=== PATIENT | male | born 1965 | race Caucasian/White ===

== ENCOUNTER 2019-05-18 14:49 | Inpatient (IN) ==
[2019-05-18] MEDS ORDERED: HUMULIN R IV ONE (15:13)
[2019-05-18] MEDS ORDERED: NS 1,000 ML IV ONE ×2 (15:13→17:03)
[2019-05-18] MEDS ORDERED: ZOFRAN IV ONE (15:13)
[2019-05-18] MEDS ORDERED: MORPHINE IV ONE (15:13)
[2019-05-18 15:25] LABS: HEMATOCRIT 43.7 % (42.0-52.0); HEMOGLOBIN 14.3 g/dL (14.0-18.0); MCH 28.8 PG (27-31); MCHC 32.7 g/dL (33-37); MCV 88.1 FL (81-99); MPV 10.6 FL (7.4-10.4); RBC 4.96 XMIL (4.7-6.1); RDW 12.9 % (11.5-14.5); WBC 10.15 X1000 (4.8-10.8)
[2019-05-18] MEDS ORDERED: HUMULIN R (PARKWAY) ONE (15:34)
[2019-05-18 15:49] LABS: ESTIMATED GFR 39
[2019-05-18 15:55] LABS: AGAP 28; ALBUMIN 4.6 g/dL (3.5-5.0); ALKALINE PHOSPHATASE 152 U/L (32-122); BUN 45 mg/dL (8-22); CHLORIDE 98 mmol/L (98-107); CK PROFILE 93 U/L (24-204); COSMO 315; CREATININE 1.8 mg/dL (0.7-1.2); GOT 21 U/L (10-34); GPT 24 U/L (10-44); MAGNESIUM 2.5 mg/dL (1.5-2.7); PHOSPHORUS 3.6 mg/dL (2.7-4.5); POTASSIUM 4.6 mmol/L (3.5-5.1); SODIUM 142 mmol/L (136-145); TCO2 16 mmol/L (25-35)
[2019-05-18 15:56] LABS: BE -4.4 mmoll (-3.0-3.0); BLOOD TYPE ARTERIAL; HCO3-(ACT) 21.3 mmoll (20.0-26.0); METHB 0.8 % (0.0-1.5); O2(CT) 16.9 mL/dL (15.0-23.0); PCO2(98.6) 35 mmHg (35-45); PO2(98.6) 60 mmHg (60-100); SAMPLE BLOOD; SAO2 92.5 % (95.0-100.0); THB 13.4 g/dL (11.5-17.4); pH(98.6) 7.37 (7.35-7.45)
[2019-05-18 15:58] LABS: O2HB 89.8 % (95.0-99.0)
[2019-05-18 15:59] LABS: ALLEN TEST YES; MODALITY ROOM AIR
[2019-05-18 16:01] LABS: ACETONE SERUM SMALL (NEGATIVE)
[2019-05-18 16:03] LABS: GLUCOSE 471 mg/dL (70-104)
[2019-05-18 16:19] LABS: INFLUENZA A POSITIVE (NEGATIVE); INFLUENZA B NEGATIVE (NEGATIVE)
[2019-05-18 16:22] LABS: URINE SOURCE CLEAN CATCH
--- NOTE | 2019-05-18 16:23 | Diag Imaging Result Doc PS360 ---
EXAM: CHEST-PORTABLE - 05/18/2019 HISTORY: cough, flu TECHNIQUE: Portable chest COMPARISON: 03/16/2020 chest two views FINDINGS: Heart size is normal. There are possibly mild COPD changes. There are stable nodular opacity at the right base. There is no acute consolidation, pleural effusion, or pneumothorax identified. IMPRESSION: Possible mild COPD changes. Nodular opacity at right base. CT thorax is recommended for further evaluation. No evidence of pneumonia. Electronically signed by Mohan Jones 05/18/2019 4:21 PM
[2019-05-18 16:28] LABS: UR EPITHELIAL CELLS <10 /HPF (<10); URINE BACTERIA NEGATIVE /HPF; URINE RBC <10 /HPF (<10); URINE WBC <10 /HPF (<10)
[2019-05-18] MEDS ORDERED: TAMIFLU PO ONE (16:29)
--- NOTE | 2019-05-18 16:29 | PROVIDER DOCUMENTATION ---
This chart was entered by Lorraine Franco Scribe, acting as scribe for Vivek Agudelo MD. HPI-General Adult - General Chief Complaint: DKA ALERT Stated Complaint: VOMITTING / DIABETIC Time Seen by Provider: 05/18/19 15:08 Source: patient, other (neighbor) Allergies/Adverse Reactions: Patient Allergies Allergy/AdvReac Type Severity Reaction Status Date / Time Penicillins Allergy Unknown Verified 05/16/19 20:36 Home Medications: Home Medication List Medication Instructions Recorded Confirmed Last Taken Type Insulin Glargine [Lantus] 35 unit SUBQ QHS 04/12/15 09/22/15 04/11/15 History Insulin Regular, Human [Humulin R] 15 unit SQ DIRECTED 04/12/15 09/22/15 04/12/15 12:00 History Pregabalin [Lyrica] 75 mg PO TID 04/12/15 09/22/15 Unknown History ATORVAstatin [Lipitor] 10 mg PO DAILY #30 tablet 09/22/15 Unknown Rx Insulin Glargine [Lantus] 35 unit SUBQ QHS #30 insuln.pen 09/22/15 Unknown Rx Pen Needle, Diabetic [Insulin Pen 1 each MC PRN PRN #100 dis.needle 09/22/15 Unknown Rx Needle] Cyclobenzaprine [Flexeril] 10 mg PO BID #10 tablet 10/19/17 Unknown Rx Ketorolac [Toradol] 10 mg PO Q6H PRN PRN #20 tablet 10/19/17 Unknown Rx Benzonatate [Tessalon Perle] 100 mg PO TID #15 cap 05/16/19 Unknown Rx Oseltamivir [Tamiflu] 75 mg PO BID #10 cap 05/16/19 Unknown Rx - History of Present Illness -Gen Adult Nature of Presenting Problems: 53 yowm presents to the ed with c/o generalized bodyaches, fatigue, cough, rhinorrhea, n/v and elevated BGL. pt has FSBS 452 in triage and sts sx all began this am. was seen last night in ed and dx with Flu. pt is poor historian on doses of insulin but sts "I take it everyday" Location of Pain/Injury: reports: generalized Quality of Pain: reports: aching Severity: reports: moderate Onset/Duration: reports: this morning Timing: reports: still present, getting worse Context/Activities at Onset: reports: light activity Modifying Factors: improves with: nothing Associated Symptoms: reports: cough, EENT symptoms, fatigue, malaise, muscle aches, nausea, vomiting. denies: chest pain, diarrhea, fever/chills, headaches, shortness of breath Similar Symptoms Previously?: Yes (IDDM) Recently seen or treated by another doctor?: No - Diabetes Related Context Context: reports: high blood sugar, prior DKA hospitalization Review of Systems - Adult - REVIEW OF SYSTEMS - ADULT Constitutional: reports: see HPI, fatique. denies: fever Eyes: reports: no symptoms reported Ears, Nose, Mouth & Throat: reports: see HPI, other (rhinorrhea) Cardiovascular: denies: chest pain, palpitations Respiratory: reports: see HPI, cough. denies: shortness of breath, wheezing Gastrointestinal: reports: see HPI, nausea, vomiting. denies: diarrhea Genitourinary: reports: no symptoms reported Musculoskeletal: reports: see HPI, muscle aches Integumentary: reports: no symptoms reported Neurological: denies: dizziness/vertigo, headache/migraines Psychiatric: reports: no symptoms reported Endocrine: reports: no symptoms reported Hematologic/Lymphatic: reports: no symptoms reported Allergic/Immunologic: reports: no symptoms reported All Other Systems: Reviewed and Negative Past History - Adult - PAST MEDICAL HISTORY-ADULT Review of Records: reports: Old Records Reviewed, Nursing Assessment Review, Medications Reviewed, Social history reviewed & non-contributory. Major Childhood Illnesses: reports: denies history Cardiovascular: reports: HTN, hyperlipidemia Respiratory: reports: denies history Gastrointestinal: reports: denies history Genitourinary: reports: denies history Musculoskeletal: reports: denies history Neurological: reports: denies history Psychiatric: reports: denies history Endocrine/Immune: reports: Diabetes Diabetes Type: Type 2 Diabetes controlled by:: Insulin Dependent Other Conditions: reports: denies history - PRIOR SURGERIES/PROCEDURES Surgical/Procedure History: reports: reviewed, not pertinent - IMMUNIZATION STATUS Childhood Immunizations: See Nurse Assessment Flu Vaccine: See Nurse Assessment - FAMILY HISTORY Family History: reviewed, not pertinent - SOCIAL HISTORY Smoking: quit greater than 1 year Substance Use: marijuana Living Situation: family Physical Exam-General - PHYSICAL EXAM-ADULT Initial Vital Signs Reviewed: Yes - CONSTITUTIONAL General Appearance: alert, mild distress (pt looks to not feel well), thin. negative: appears well (ill appearing) - EYES Eyes: PERRL/EOMI, pink conjunctivae - HEAD, EARS, NOSE, MOUTH & THROAT HENMT: negative: moist mucous membranes (dry oral) - NECK Neck: non-tender, full range of motion, normal inspection - RESPIRATORY Respiratory: chest non-tender, lungs clear, normal breath sounds - CARDIOVASCULAR Cardiovascular: normal peripheral pulses, regular rate, rhythm - CHEST (BREASTS) Chest/Breast: deferred - GASTROINTESTINAL (ABDOMEN) Abdominal Exam: normal bowel sounds, non tender, soft, other (c/o nausea) - GENITOURINARY Male Genitalia: deferred Rectal Exam: deferred Hemoccult Exam: deferred - MUSCULOSKELETAL Back Exam: no CVA tenderness, no vertebral tenderness Extremity: normal range of motion, normal gait, normal inspection, normal capillary refill, other (c/o generalized bodyaches) - SKIN Integumentary: normal color, normal turgor, warm/dry - NEUROLOGIC Neurologic: grossly normal - PSYCHIATRIC Psych/Mental Status: normal thought content, normal thought process, oriented x 3 Progress - PLAN OF CARE/RESULTS Progress/Plan/Lab Results: Vital Signs - 8 hr 05/18/19 14:53 Temperature 97.8 F Pulse Rate 95 H Respiratory Rate 18 Blood Pressure 129/79 O2 Sat by Pulse Oximetry 97 Laboratory Results - last 24 hr 05/18/19 14:57 POC Glucose 452 H Orders Category Date Time Status Cardiac Monitoring DIRECTED Care 05/18/19 14:58 Active FSBS/Accucheck Result Q1H Care 05/18/19 14:58 Active Finger Stick Blood Sugar (ED) DIRECTED Care 05/18/19 14:59 Active Saline Loc NOW Care 05/18/19 14:58 Active Vital Signs Order Q1H Care 05/18/19 14:58 Active ABG [RESP] Routine Lab 05/18/19 14:58 Ordered ACETONE SERUM [CHEM] Stat Lab 05/18/19 15:12 Ordered CBC WITH NO DIFF [HEME] Stat Lab 05/18/19 15:12 Ordered CK PROFILE [SP CHEM] Stat Lab 05/18/19 15:12 Ordered COMPREHENSIVE METABOLIC PANEL [CHEM] Stat Lab 05/18/19 15:12 Ordered LACTATE, PLASMA [CHEM] Stat Lab 05/18/19 15:12 Ordered MAGNESIUM [CHEM] Stat Lab 05/18/19 15:12 Ordered PHOSPHORUS [CHEM] Stat Lab 05/18/19 15:12 Ordered TROPONIN T HIGH SENSITIVITY Stat Lab 05/18/19 15:12 Ordered URINALYSIS [URINALYSIS] Stat Lab 05/18/19 14:58 Uncollected URINE DRUG SCREEN PL Stat Lab 05/18/19 14:58 Uncollected Insulin Human Regular [Humulin R] Med 05/18/19 15:13 Once 5 unit IV NOW ONE Morphine Med 05/18/19 15:13 Once 4 mg IV NOW ONE Ns 1000 ml IV Bolus X1 Med 05/18/19 15:13 Ordered 0.9% Sodium Chloride Inj [Ns] 1,000 ml IV 999 mls/hr Ondansetron [Zofran] Med 05/18/19 15:13 Once 8 mg IV NOW ONE EKG [EKG] Routine Ther 05/18/19 14:58 Ordered Result Diagrams: 05/18/19 15:10 05/18/19 15:10 - REASSESSMENT Reassessment #1 Time Reassessed: 15:15 Status: improving (dr at bedside) - EKG 1 Time of EKG reading by physician:: 15:33 EKG Read and Signed by:: Vivek Agudelo EKG Interpretation (*Must complete 3 of following elements*): Normal (borderline) Rate: 87 Rhythm: nsr [place]: normal QRS: LVH MO Interval: normal ST Wave: normal - XRAY 1 XRAY: Bilateral XRAY Study: Chest Impression: See EMR Report - CONSULTS/PCP/HOSPITALIST Notification #1 *Consult/PCP/Hospitalist*: hospitalist dr montes Time Discussed: 16:04 Consult Disposition: Will see in ED, Admit Departure - Departure Date of Disposition Decision: 05/18/19 Time of Disposition Decision: 16:18 DIAGNOSIS: Flu, COPD (chronic obstructive pulmonary disease) DKA (diabetic ketoacidoses) Qualifiers: Diabetes mellitus type: type 2 Diabetes mellitus complication detail: without coma Qualified Code(s): E11.10 - Type 2 diabetes mellitus with ketoacidosis without coma Vomiting Qualifiers: Vomiting type: unspecified Vomiting Intractability: non-intractable Nausea presence: with nausea Qualified Code(s): R11.2 - Nausea with vomiting, unspecified Disposition: ADMITTED INPATIENT 09 Certified Medical Emergency: Emergent Condition: Stable Referrals and Follow-Ups: None,PCP [Primary Care Provider] - - Critical Care Note This patient required my direct & personal management of CC.: Yes Total Time (mins): 37 Critical Care Statement: This patient required my direct personal management to treat or rule out processes, the absence of which, could potentiallly result in sudden, clinically significant life or limb threatening deterioration. Attestation - Physician/ JOSE Attestation Patient care was provided by Advanced Practice Provider:: No The physician spent face to face time with patient:: Yes Advanced Practice Provider documentation review:: Supervising physician onsite and consulted in the evaluation and care of this patient. The physician did have a face to face encounter with the patient. This chart was documented by the indicated scribe, (Lorraine Franco Scribe) and accurately reflects the services I performed and decisions made by me, Vivek Agudelo MD, as attested by the provider's signature.
[2019-05-18 16:33] LABS: BILIRUBIN URINE NEGATIVE (NEGATIVE); BLOOD URINE TRACE (NEGATIVE); COLOR YELLOW; GLUCOSE URINE >1000 mg/dL (NEGATIVE); KETONE URINE 80 mg/dL (NEGATIVE); LEUKOCYTES URINE NEGATIVE (NEGATIVE); NITRITE URINE NEGATIVE (NEGATIVE); PROTEIN URINE 30 mg/dL (NEGATIVE); SP GRAVITY URINE 1.027; TURBIDITY URINE CLEAR (CLEAR); UROBILINOGEN URINE NORMAL (NORMAL)
[2019-05-18 16:35] LABS: UR AMPHETAMINES QUAL NONE DETECTED (NONE DETECT); UR BARBITUATES QUAL NONE DETECTED (NONE DETECT); UR BENZODIAZEPIN QUAL NONE DETECTED (NONE DETECT); UR CANNABINOIDS QUAL NONE DETECTED (NONE DETECT); UR COCAINE QUAL NONE DETECTED (NONE DETECT); UR METHADONE QUAL NONE DETECTED (NONE DETECT); UR METHAMPHETAMINE QUAL NONE DETECTED (NONE DETECT); UR OPIATES QUAL PRESUMPTIVE POSITIVE (NONE DETECT); UR OXYCODONE QUAL NONE DETECTED (NONE DETECT); UR PCP QUAL NONE DETECTED (NONE DETECT); UR PROPOXYPHENE QUAL NONE DETECTED (NONE DETECT); UR TCA QUAL NONE DETECTED (NONE DETECT)
[2019-05-18] MEDS ORDERED: ZOFRAN IV PRN (17:44)
[2019-05-18] MEDS ORDERED: TYLENOL PO PRN (17:44)
[2019-05-18] MEDS: NS 1,000 ML IV SCH (17:45)
--- NOTE | 2019-05-18 17:53 | EKG Report ---
Test Performed on : 05/18/2019 3:33:07 PM Test Reason : dka Blood Pressure : / mmHG Vent. Rate : 087 BPM Atrial Rate : 087 BPM P-R Int : 130 ms QRS Dur : 086 ms QT Int : 366 ms P-R-T Axes : 077 070 072 degrees QTc Int : 440 ms Normal sinus rhythm. Moderate voltage criteria for LVH, may be normal variant Borderline ECG No previous ECGs available Unconfirmed Result
[2019-05-18] MEDS: TAMIFLU PO SCH (20:57)
[2019-05-18] MEDS: HUMALOG (PARKWAY) SUBQ SCH (22:51)
--- NOTE | 2019-05-19 04:39 | HISTORY AND PHYSICAL ---
CHIEF COMPLAINT: Nausea, vomiting. HISTORY OF PRESENT ILLNESS: Patient is a 53-year-old male who presented to the hospital with increased abdominal pain, body aches, fatigue. He has had cough, rhinorrhea, nausea, vomiting. Blood sugar has been elevated in the 450 range while he was in triage. Notes that symptoms started yesterday. The patient does note that he takes insulin. When asked how much, he replies with "Yes, I do take it." ALLERGIES: Penicillin. MEDICATIONS: Lantus. I believe he takes 35 units at home although he is unsure if he takes Lantus or Humulin R. Otherwise, we do not have any true record of his current medications. REVIEW OF SYSTEMS: As noted above. Positive cough, congestion, shortness of breath, increased work of breathing, fevers, chills, muscle aches, runny nose. He has had a nonproductive cough. He has had nausea, vomiting. Denies any constipation, melena, hematochezia. Denies any dysuria, urinary frequency, urgency, hesitancy, polyuria or polydipsia. PAST MEDICAL HISTORY: Significant for diabetes, hypertension, hyperlipidemia. FAMILY HISTORY: Positive for diabetes. SOCIAL HISTORY: Patient has a long history of smoking. States that he stopped approximately a year ago. Does use marijuana. Denies alcohol. PHYSICAL EXAMINATION: VITAL SIGNS: Temperature 97.8, pulse 95, respiratory rate 18, BP 129/79. GENERAL: Patient is in no current respiratory distress, but he is somewhat ill-appearing. HEENT: Normocephalic. NECK: Supple. CARDIOVASCULAR: Regular rate. CHEST: Clear and nonlabored. No wheezing. ABDOMEN: Soft, diffusely tender, nondistended. EXTREMITIES: Moves all extremities. No edema. NEUROLOGIC: No focal neurological changes. Patient is awake, alert, oriented. LABORATORIES: CBC normal. Carbon dioxide 14 and glucose 471 on BMP. ASSESSMENT: 1. Influenza type A positive. 2. Diabetes with hyperglycemia. 3. Chronic obstructive pulmonary disease with mild exacerbation. PLAN: We are going to admit patient to the hospital, IV fluids, antibiotics. Place him on Tamiflu, sliding scale insulin and we will follow. cc: Abner Hawthorne MD
[2019-05-19] MEDS: NS 1,000 ML IV SCH ×3 (05:36→17:31)
[2019-05-19 05:44] LABS: HEMATOCRIT 38.4 % (42.0-52.0); HEMOGLOBIN 12.3 g/dL (14.0-18.0); MCH 28.6 PG (27-31); MCV 89.3 FL (81-99); MPV 10.1 FL (7.4-10.4); RBC 4.3 XMIL (4.7-6.1); WBC 10.34 X1000 (4.8-10.8)
[2019-05-19 06:02] LABS: ALBUMIN 3.7 g/dL (3.5-5.0); CALCIUM 8.8 mg/dL (8.8-10.2); CREATININE 1.4 mg/dL (0.7-1.2); POTASSIUM 4.7 mmol/L (3.5-5.1); TOTAL BILIRUBIN 0.4 mg/dL (0.20-1.00); TOTAL PROTEIN 6.8 g/dL (6.3-8.3)
[2019-05-19] MEDS: HUMALOG (PARKWAY) SUBQ SCH ×4 (06:20→22:43)
[2019-05-19] MEDS ORDERED: INSULIN PEN NEEDLES MISC PRN (07:13)
[2019-05-19] MEDS: DUONEB (A & A) INH PRN ×3 (08:48→20:09)
[2019-05-19] MEDS ORDERED: TAMIFLU PO SCH (09:00)
[2019-05-19] MEDS: HUMULIN R (PARKWAY) SUBQ SCH ×3 (09:00→17:31)
[2019-05-19] MEDS: PRINIVIL PO SCH (09:25)
[2019-05-19] MEDS: LYRICA PO SCH ×2 (09:25→22:51)
[2019-05-19] MEDS: VOLTAREN PO SCH ×3 (09:25→22:51)
[2019-05-19] MEDS: TAMIFLU PO SCH ×2 (09:25→22:51)
[2019-05-19] MEDS ORDERED: LANTUS INSULIN SUBQ SCH (21:00)
--- NOTE | 2019-05-20 03:28 | PROGRESS NOTE ---
DATE: 05/19/2019 SUBJECTIVE: Patient notes that he is feeling a little bit better. Still coughing, still short of breath, still congested. PHYSICAL EXAMINATION: Vital Signs: Temperature 98 degrees, pulse 55, respiratory rate 18, BP 153/63. General: Patient is pleasant. He is in minimal respiratory distress. HEENT: Normocephalic. Neck: Supple. Cardiovascular: Regular rate. Chest: Clear and nonlabored. No wheezing. Abdomen: Soft, nondistended. Extremities: Moves all extremities. ASSESSMENT: 1. Influenza type A positive. 2. Diabetes with hyperglycemia. 3. Chronic obstructive pulmonary disease with mild exacerbation. 4. Acute renal failure, improving. Creatinine is down to 1.4. 5. Metabolic acidosis, improving. PLAN: We are going to continue patient in the hospital. Continue to follow. We will adjust his insulin as his blood sugars are still 321. Continue Tamiflu. Continue fluids. Further orders as needed. cc: Abner Hawthorne MD
[2019-05-20] MEDS: NS 1,000 ML IV SCH (03:53)
[2019-05-20] MEDS: PRILOSEC PO SCH ×2 (05:51→09:04)
[2019-05-20] MEDS: HUMALOG (PARKWAY) SUBQ SCH ×2 (05:53→09:05)
[2019-05-20] MEDS: DUONEB (A & A) INH PRN ×2 (08:09→11:43)
[2019-05-20 08:52] VITALS: BP 154/65
[2019-05-20] MEDS: VOLTAREN PO SCH (09:02)
[2019-05-20] MEDS: LYRICA PO SCH (09:02)
[2019-05-20] MEDS: PRINIVIL PO SCH (09:02)
[2019-05-20] MEDS: TAMIFLU PO SCH (09:03)
[2019-05-20] MEDS: HUMULIN R (PARKWAY) SUBQ SCH (09:03)
--- NOTE | 2019-05-21 02:13 | DISCHARGE SUMMARY ---
ADMISSION DATE: 05/18/2019 DISCHARGE DATE: 05/20/2019 DISCHARGE DIAGNOSES: 1. Influenza type A positive. 2. Diabetes with hyperglycemia, improved. Blood sugars elevated but down to the 200s. 3. Acute on chronic renal failure. Creatinine is improved down to 1.4. 4. Metabolic acidosis, also improved. CONSULTATIONS: None. PROCEDURES: None. BRIEF HOSPITAL COURSE: The patient is a 53-year-old male who presented to the hospital with fevers, chills, cough, congestion. Diagnosed with influenza type A. His blood sugars were markedly elevated. We admitted him to the hospital, placed him on sliding scale insulin, Tamiflu, oxygen, and fluids. Thankfully, on discharge he was eating and drinking without any difficulty and although he was still feeling bad from the flu he was improved and therefore will be discharged home. cc: Abner Hawthorne MD
== END 2019-05-20 15:30 | disposition home or self-care (01) | DRG 638 ==
LOC: P.ED 14:49 → P.MEDSURG 19:42
PROVIDERS: ATTEND Family Medicine

== ENCOUNTER 2019-05-23 16:59 | Inpatient (IN) ==
[2019-05-23] MEDS ORDERED: NS 1,000 ML IV ONE ×3 (17:53→19:57)
[2019-05-23] MEDS ORDERED: ZOFRAN IV ONE ×2 (17:53→23:34)
[2019-05-23 17:55] LABS: BLOOD TYPE ARTERIAL; METHB 1.1 % (0.0-1.5); O2(CT) 17.3 mL/dL (15.0-23.0); O2HB 92.4 % (95.0-99.0); PCO2(98.6) 31 mmHg (35-45); PO2(98.6) 62 mmHg (60-100); SAMPLE BLOOD; SAO2 95.3 % (95.0-100.0); THB 13.3 g/dL (11.5-17.4); pH(98.6) 7.46 (7.35-7.45)
[2019-05-23 17:58] LABS: HEMATOCRIT 38.6 % (42.0-52.0); HEMOGLOBIN 12.8 g/dL (14.0-18.0); MCH 29.1 PG (27-31); MCHC 33.2 g/dL (33-37); MCV 87.7 FL (81-99); MPV 10.4 FL (7.4-10.4); RBC 4.4 XMIL (4.7-6.1); RDW 12.4 % (11.5-14.5); WBC 7.32 X1000 (4.8-10.8)
[2019-05-23 18:09] LABS: URINE SOURCE CLEAN CATCH
[2019-05-23 18:10] LABS: AGAP 18; ALBUMIN 3.7 g/dL (3.5-5.0); ALKALINE PHOSPHATASE 106 U/L (32-122); BUN 26 mg/dL (8-22); CHLORIDE 98 mmol/L (98-107); CK PROFILE 52 U/L (24-204); COSMO 299; CREATININE 1.4 mg/dL (0.7-1.2); ESTIMATED GFR 53; GLUCOSE 395 mg/dL (70-104); GOT 15 U/L (10-34); GPT 19 U/L (10-44); MAGNESIUM 1.7 mg/dL (1.5-2.7); PHOSPHORUS 2.5 mg/dL (2.7-4.5); POTASSIUM 4.8 mmol/L (3.5-5.1); SODIUM 139 mmol/L (136-145); TCO2 23 mmol/L (25-35); TOTAL PROTEIN 6.8 g/dL (6.3-8.3)
[2019-05-23 18:21] LABS: ACETONE SERUM NEGATIVE (NEGATIVE)
[2019-05-23 18:24] LABS: UR EPITHELIAL CELLS <10 /HPF (<10); URINE BACTERIA NEGATIVE /HPF; URINE RBC <10 /HPF (<10); URINE WBC <10 /HPF (<10)
[2019-05-23 18:29] LABS: UR AMPHETAMINES QUAL NONE DETECTED (NONE DETECT); UR BARBITUATES QUAL NONE DETECTED (NONE DETECT); UR BENZODIAZEPIN QUAL NONE DETECTED (NONE DETECT); UR CANNABINOIDS QUAL NONE DETECTED (NONE DETECT); UR COCAINE QUAL NONE DETECTED (NONE DETECT); UR METHADONE QUAL NONE DETECTED (NONE DETECT); UR METHAMPHETAMINE QUAL NONE DETECTED (NONE DETECT); UR OPIATES QUAL NONE DETECTED (NONE DETECT); UR OXYCODONE QUAL NONE DETECTED (NONE DETECT); UR PCP QUAL NONE DETECTED (NONE DETECT); UR PROPOXYPHENE QUAL NONE DETECTED (NONE DETECT); UR TCA QUAL NONE DETECTED (NONE DETECT)
[2019-05-23] MEDS ORDERED: REGLAN IV ONE (18:36)
[2019-05-23 18:58] LABS: ALLEN TEST NO; MODALITY ROOM AIR
[2019-05-23 19:00] LABS: BILIRUBIN URINE NEGATIVE (NEGATIVE); COLOR YELLOW; GLUCOSE URINE >1000 mg/dL (NEGATIVE); KETONE URINE 60 mg/dL (NEGATIVE); TURBIDITY URINE CLEAR (CLEAR)
[2019-05-23 19:01] LABS: BLOOD URINE TRACE (NEGATIVE); LEUKOCYTES URINE NEGATIVE (NEGATIVE); NITRITE URINE NEGATIVE (NEGATIVE); PROTEIN URINE 200 mg/dL (NEGATIVE); UROBILINOGEN URINE NORMAL (NORMAL)
--- NOTE | 2019-05-23 19:18 | PROVIDER DOCUMENTATION ---
This chart was entered by Val Armstrong Scribe, acting as scribe for Vivek Agudelo MD. HPI-General Adult - General Chief Complaint: Vomiting Stated Complaint: VOMIT Time Seen by Provider: 05/23/19 17:18 Source: patient, family Allergies/Adverse Reactions: Patient Allergies Allergy/AdvReac Type Severity Reaction Status Date / Time Penicillins Allergy Unknown Verified 05/16/19 20:36 Home Medications: Home Medication List Medication Instructions Recorded Confirmed Last Taken Type Insulin Glargine [Lantus] 35 unit SUBQ QHS 04/12/15 05/23/19 04/11/15 History Insulin Regular, Human [Humulin R 15 unit SQ TID CC 04/12/15 05/23/19 04/12/15 12:00 History U-500] Pen Needle, Diabetic [Insulin Pen 1 each MC PRN PRN #100 dis.needle 09/22/15 05/23/19 Unknown Rx Needle] Diclofenac Na D.r. [Voltaren] 75 tab PO TID@0900,1500,2100 05/18/19 05/23/19 Unknown History LISINOpril [Prinivil] 5 mg PO DAILY 05/18/19 05/23/19 Unknown History Omeprazole 40 mg PO DAILY@0700 05/18/19 05/24/19 Unknown History Pregabalin 75 mg PO BID 05/18/19 05/24/19 Unknown History Albuterol 2.5MG/Ipratrop 0.5MG 3 ml INH Q4H PRN PRN #180 neb 05/20/19 05/23/19 Unknown Rx [Duoneb (A & A)] Oseltamivir [Tamiflu] 75 mg PO BID #0 cap 05/20/19 05/23/19 Unknown Rx Acetaminophen [Tylenol] 650 mg PO Q6H PRN PRN tab 05/28/19 Unknown Rx Doxycycline 100 mg PO BID #8 tab 05/28/19 Unknown Rx Levofloxacin [Levaquin] 500 mg PO DAILY #5 tab 05/28/19 Unknown Rx - History of Present Illness -Gen Adult Nature of Presenting Problems: Patient is a 53 year old male who presents with nausea and vomiting. States symptoms have been present for 5 days. History of diabetes. Reports he has been taking lower doses of insulin due to not being able to eat. Family states patient was recently admitted for flu. Location of Pain/Injury: reports: none Quality of Pain: reports: none Severity: reports: mild Onset/Duration: reports: 5 days ago Timing: reports: still present Context/Activities at Onset: reports: light activity Associated Symptoms: reports: nausea, vomiting Similar Symptoms Previously?: Yes Recently seen or treated by another doctor?: No - Diabetes Related Context Context: reports: high blood sugar Review of Systems - Adult - REVIEW OF SYSTEMS - ADULT Constitutional: reports: no symptoms reported. denies: chills Eyes: reports: no symptoms reported Ears, Nose, Mouth & Throat: reports: no symptoms reported Cardiovascular: reports: no symptoms reported Respiratory: reports: no symptoms reported Gastrointestinal: reports: see HPI, nausea, vomiting Genitourinary: reports: no symptoms reported Musculoskeletal: reports: no symptoms reported Integumentary: reports: no symptoms reported Neurological: reports: no symptoms reported Psychiatric: reports: no symptoms reported Endocrine: reports: no symptoms reported Hematologic/Lymphatic: reports: no symptoms reported Allergic/Immunologic: reports: no symptoms reported All Other Systems: Reviewed and Negative Past History - Adult - PAST MEDICAL HISTORY-ADULT Review of Records: reports: Nursing Assessment Review, Medications Reviewed, Social history reviewed & non-contributory. Major Childhood Illnesses: reports: denies history Cardiovascular: reports: HTN Respiratory: reports: denies history Gastrointestinal: reports: denies history Obstetrical/Gynecological: reports: denies history Genitourinary: reports: denies history Musculoskeletal: reports: denies history Neurological: reports: denies history Endocrine/Immune: reports: Diabetes Other Conditions: reports: denies history - PRIOR SURGERIES/PROCEDURES Surgical/Procedure History: reports: tonsillectomy - IMMUNIZATION STATUS Childhood Immunizations: See Nurse Assessment Flu Vaccine: See Nurse Assessment - FAMILY HISTORY Family History: reviewed, not pertinent - SOCIAL HISTORY Smoking: cigarettes (former) Substance Use: denies Living Situation: family Physical Exam-General - PHYSICAL EXAM-ADULT Initial Vital Signs Reviewed: Yes - CONSTITUTIONAL General Appearance: alert, mild distress, other (actively vomiting) - EYES Eyes: PERRL/EOMI - HEAD, EARS, NOSE, MOUTH & THROAT HENMT: other (DRY LIPAND MUCOSA). negative: moist mucous membranes - NECK Neck: full range of motion - RESPIRATORY Respiratory: lungs clear - CARDIOVASCULAR Cardiovascular: regular rate, rhythm, no murmur, tachycardia - GASTROINTESTINAL (ABDOMEN) Abdominal Exam: non tender, soft - MUSCULOSKELETAL Back Exam: normal inspection Extremity: normal range of motion, non-tender - SKIN Integumentary: normal color, normal turgor, warm/dry - NEUROLOGIC Neurologic: surgical scrub technician II-XII nml as tested, grossly normal, no motor/sensory deficits - PSYCHIATRIC Psych/Mental Status: normal mood/affect, oriented x 3, disheveled Progress - PLAN OF CARE/RESULTS Progress/Plan/Lab Results: Vital Signs - 8 hr 05/23/19 17:05 Temperature 100.3 F H Pulse Rate 101 H Respiratory Rate 19 Blood Pressure 167/98 O2 Sat by Pulse Oximetry 93 L Laboratory Results - last 24 hr 05/23/19 17:13 POC Glucose 302 H D Orders Category Date Time Status FSBS [Finger Stick Blood Sugar (ED)] DIRECTED Care 05/23/19 17:13 Active Result Diagrams: 05/27/19 10:10 05/27/19 10:10 - CONSULTS/PCP/HOSPITALIST Notification #1 *Consult/PCP/Hospitalist*: DR SEBASTIAN Time Discussed: 18:00 Consult Disposition: Admit - CHANGE OF SHIFT REPORT (ED Provider) 1 Report Given and Care Transferred to:: DR BAUGH Time of Transfer: 19:18 Departure - Departure Date of Disposition Decision: 05/30/19 Time of Disposition Decision: 18:10 DIAGNOSIS: Flu, Weakness DKA (diabetic ketoacidoses) Qualifiers: Diabetes mellitus type: type 2 Vomiting Qualifiers: Vomiting Intractability: non-intractable Nausea presence: with nausea Disposition: ADMITTED INPATIENT 09 Certified Medical Emergency: Emergent Condition: Fair - Critical Care Note This patient required my direct & personal management of CC.: Yes Total Time (mins): 36 Critical Care Statement: This patient required my direct personal management to treat or rule out processes, the absence of which, could potentiallly result in sudden, clinically significant life or limb threatening deterioration. Attestation - Physician/ JOSE Attestation Patient care was provided by Advanced Practice Provider:: No The physician spent face to face time with patient:: Yes Advanced Practice Provider documentation review:: Supervising physician onsite and consulted in the evaluation and care of this patient. The physician did have a face to face encounter with the patient. This chart was documented by the indicated scribe, (Val Armstrong Scribe) and accurately reflects the services I performed and decisions made by me, Vivek Agudelo MD, as attested by the provider's signature.
[2019-05-23] MEDS ORDERED: HUMULIN R IV ONE (21:17)
[2019-05-23] MEDS ORDERED: HUMULIN R (PARKWAY) ONE (21:19)
--- NOTE | 2019-05-23 21:39 | Diag Imaging Result Doc PS360 ---
EXAM: CHEST-1 VIEW INDICATION: recent influenza, weakness. TECHNIQUE: One view COMPARISON: 05/18/2019 FINDINGS: The nodular opacity at the right lung base seen previously is stable. The lungs are grossly clear, otherwise. There is no discrete pleural fluid collection or pneumothorax. The cardiomediastinal silhouette and central vasculature are grossly unremarkable. IMPRESSION: Stable chest with no definite acute pathology by plain radiograph. Electronically signed by Jarocho Partida 05/23/2019 9:36 PM
--- NOTE | 2019-05-23 23:34 | EKG Report ---
Test Performed on : 05/23/2019 6:04:45 PM Test Reason : r/o dka Blood Pressure : / mmHG Vent. Rate : 098 BPM Atrial Rate : 098 BPM P-R Int : 128 ms QRS Dur : 082 ms QT Int : 342 ms P-R-T Axes : 063 056 070 degrees QTc Int : 436 ms Normal sinus rhythm. Voltage criteria for left ventricular hypertrophy Abnormal ECG When compared with ECG of 18-MAY-2019 15:33, (Unconfirmed) No significant change was found Unconfirmed Result
[2019-05-24] MEDS: NS 1,000 ML IV SCH ×3 (00:05→17:25)
[2019-05-24] MEDS ORDERED: HUMULIN R IV ONE (01:39)
[2019-05-24] MEDS ORDERED: HUMULIN R (PARKWAY) ONE (01:53)
[2019-05-24] MEDS ORDERED: ZOFRAN IV ONE (04:38)
[2019-05-24] MEDS ORDERED: PHENERGAN IV ONE (06:07)
[2019-05-24] MEDS ORDERED: HUMULIN R SUBQ ONE (06:07)
[2019-05-24] MEDS ORDERED: SODIUM CHLORIDE 0.9% INJ ONE (06:07)
[2019-05-24] MEDS: DUONEB (A & A) INH PRN (11:10)
[2019-05-24] MEDS: PRINIVIL PO SCH (11:17)
[2019-05-24] MEDS: ZOFRAN IV PRN ×2 (11:18→16:52)
[2019-05-24] MEDS: HUMALOG (PARKWAY) SUBQ SCH ×3 (11:25→22:03)
[2019-05-24] MEDS: HUMULIN R (PARKWAY) SUBQ SCH ×2 (12:09→16:54)
--- NOTE | 2019-05-24 12:31 | HISTORY AND PHYSICAL ---
PRIMARY CARE PHYSICIAN: Dr. Abner Hawthorne. CHIEF COMPLAINT: Nausea, vomiting, and diarrhea, with weakness and elevated blood sugar readings over the past 5 days that progressively worsened. HISTORY OF PRESENTING ILLNESS: This is a 53-year-old, male, who presents to [facility] ER with complaints of nausea, vomiting, and diarrhea over the past 5 days that progressively worsened. Reports that he had been taking lower doses of his insulin due to not being able to eat. Also states he has felt very weak. It is noted that he was discharged from the hospital on 05/20/2019 after having influenza A and acute on chronic renal failure and hyperglycemia with his diabetes type 2. He was discharged home in stable condition at that time. States he reduced his insulin dosage on his own due to not eating and drinking as well, but states he did have readings that were greater than 600. When he arrived to the emergency room, his blood sugar was 395, creatinine of 1.4. His hemoglobin A1c is 9. His acetone level was negative. Group A strep was negative. Chest x-ray was stable. He was admitted for further evaluation and treatment. PAST MEDICAL HISTORY: Diabetes type 2, hypertension, recent diagnosis with influenza A. PAST SURGICAL HISTORY: Tonsillectomy. FAMILY HISTORY: Father is with history of CVA. Mother living with no reported medical problems. SOCIAL HISTORY: Lives alone. He is a former smoker that smoked a pack a day for 40 years. Denies any alcohol or illicit drug use. ALLERGIES: Penicillin. HOME MEDICATIONS: We will hold his Tamiflu 75 mg p.o. b.i.d., and continue his DuoNebs every 4 hours p.r.n., Voltaren 75 mg p.o. t.i.d., Lantus 35 units subcutaneously at bedtime, Humulin R 15 units subcutaneously t.i.d., lisinopril 5 mg p.o. daily, omeprazole 40 mg p.o. daily, and Pregabalin 75 mg p.o. b.i.d. IMAGING AND LABORATORY DATA: Laboratory data showed a white blood cell count of 7.32, hemoglobin 12.8, hematocrit 38.6, platelets 178,000. ABG with a pH of 7.46, pCO2 of 31, PO2 of 62, bicarb 24.1. This was on room air. Sodium 139, potassium 4.8, chloride 98, CO2 of 23, BUN of 26, creatinine 1.4, glucose 395. A1c 9. Magnesium 1.7. Plasma lactate 0.8. Urinalysis was negative. Urine drug screen was negative. Acetone level was negative. Group A strep was negative. Chest x-ray was stable with no definite acute pathology by plain radiograph. EKG: Normal sinus rhythm at 98. REVIEW OF SYSTEMS: He was positive for some subjective fever, chills, weakness, productive cough, shortness of breath, nausea, vomiting, diarrhea, and some generalized abdominal pain. Otherwise negative review of systems. PHYSICAL EXAMINATION: VITAL SIGNS: On arrival, he had a temperature of 100.3 degrees, pulse 101, respirations 19, blood pressure 168/98, saturating 93% on room air. Currently, temperature is 98.3 degrees. GENERAL: This is a 53-year-old male, lying in the bed, and answers questions appropriately. HENT: Normocephalic, atraumatic. Normal ENT inspection. Oropharynx and nares are clear. EYES: Pupils are equal, round, and reactive to light and accommodation. Extraocular movements are intact. NECK: Normal inspection. Normal range of motion. LUNGS: Clear to auscultation bilaterally with equal lung expansion and chest wall movement. HEART: Regular rate and rhythm. No murmurs, rubs, or gallops. ABDOMEN: Soft, nontender, nondistended. Bowel sounds are present x4 quadrants. MUSCULOSKELETAL: He had 5/5 strength x4 extremities. NEUROLOGICAL: The cranial nerves II through XII appear grossly intact. ASSESSMENT: 1. Nausea, vomiting, diarrhea. 2. Diabetes type 2, uncontrolled with hyperglycemia. A1c of 9. 3. Acute kidney injury. 4. Hypertension. PLAN: He has been admitted to the medical floor, placed on a diabetic diet, pattern blood sugars with sliding scale insulin. Will continue his home medications. He is on normal saline at 125 mL an hour. Will recheck a CBC and BMP in the a.m., and further orders after seen by attending. Dictated by ANJANA Ojeda for Abner Hawthorne MD cc: ANJANA Ojeda MD
[2019-05-24] MEDS ORDERED: LYRICA PO SCH (13:00)
[2019-05-24] MEDS: VOLTAREN PO SCH ×2 (16:53→20:57)
[2019-05-24] MEDS ORDERED: ZOFRAN IV PRN (17:23)
[2019-05-24] MEDS: TYLENOL PO PRN (17:38)
--- NOTE | 2019-05-24 20:21 | HISTORY AND PHYSICAL ---
ADDENDUM: The patient is seen and examined by myself. Full note dictated and discussed by nurse practitioner. Patient presented to the hospital with nausea, vomiting, and elevated blood sugars. We are going to admit him to the hospital, place him on IV fluids, Zofran. We will follow. cc: Abner Hawthorne MD
[2019-05-24] MEDS: LYRICA PO SCH (20:56)
[2019-05-24] MEDS: LANTUS INSULIN SUBQ SCH ×2 (20:56→22:00)
[2019-05-25] MEDS: NS 1,000 ML IV SCH ×3 (03:00→17:47)
[2019-05-25 06:08] LABS: BASO# 0.02 X1000 (0.0-0.2); BASO% 0.2 % (0.0-0.8); EOS# 0.11 X1000 (0.0-0.7); EOS% 1.3 % (0.0-10.0); HEMOGLOBIN 10.9 g/dL (14.0-18.0); IMM GRAN# 0.05 X1000 (0.0-0.04); IMM GRAN% 0.6 % (0.0-0.5); LYMPH# 0.74 X1000 (1.2-3.4); LYMPH% 8.8 % (20.5-51.1); MCH 28.6 PG (27-31); MCHC 32.1 g/dL (33-37); MCV 89.2 FL (81-99); MONO# 0.94 X1000 (0.11-0.59); MONO% 11.2 % (1.7-9.3); MPV 9.5 FL (7.4-10.4); NEUT# 6.53 X1000 (1.4-6.5); NEUT% 77.9 % (42.2-75.2); PLT 199 X1000 (130-400); RBC 3.81 XMIL (4.7-6.1); RDW 12.7 % (11.5-14.5); WBC 8.39 X1000 (4.8-10.8)
[2019-05-25 06:18] LABS: AGAP 10; BUN 22 mg/dL (8-22); CALCIUM 7.9 mg/dL (8.8-10.2); CHLORIDE 112 mmol/L (98-107); COSMO 288; CREATININE 1.2 mg/dL (0.7-1.2); ESTIMATED GFR > 60; GLUCOSE 64 mg/dL (70-104); POTASSIUM 3.6 mmol/L (3.5-5.1); SODIUM 144 mmol/L (136-145); TCO2 23 mmol/L (25-35)
[2019-05-25] MEDS: HUMALOG (PARKWAY) SUBQ SCH ×4 (06:25→22:58)
[2019-05-25] MEDS: PRILOSEC PO SCH (06:35)
[2019-05-25] MEDS: DUONEB (A & A) INH PRN ×2 (07:45→20:14)
[2019-05-25] MEDS: HUMULIN R (PARKWAY) SUBQ SCH ×3 (07:52→16:19)
[2019-05-25 09:16] LABS: LYMPHS 7 % (21-51); MONO 13 % (1-9); SEGS 80 % (42-75)
[2019-05-25] MEDS: ZOFRAN IV PRN (09:54)
[2019-05-25] MEDS: LYRICA PO SCH ×2 (11:45→20:26)
[2019-05-25] MEDS: PRINIVIL PO SCH (11:46)
[2019-05-25] MEDS: VOLTAREN PO SCH ×3 (11:46→20:26)
[2019-05-25] MEDS ORDERED: CHLORASEPTIC SPRAY MT PRN (18:11)
--- NOTE | 2019-05-25 19:24 | PROGRESS NOTE ---
DATE: 05/25/2019 SUBJECTIVE: The patient notes that he still does not feel well, and in fact he has had blood sugars at 32 and 64 earlier this morning. Denies any fevers or chills. Denies any headaches or blurred vision. OBJECTIVE: Vital Signs: Reviewed. General: He is awake and alert. He is in no respiratory distress. HEENT: Normocephalic. Neck: Supple. Cardiovascular: Regular rate. Chest: Clear. Abdomen: Soft. Extremities: Moves all extremities. Neurologic: No changes. ASSESSMENT: 1. Hypoglycemia. 2. Nausea and vomiting. 3. Diabetes with uncontrolled A1c at 9 at home. 4. Acute kidney injury. PLAN: We are going to continue the patient in the hospital and continue to follow. Further orders as needed. Will continue to hold his hypoglycemic medications. cc: Abner Hawthorne MD
[2019-05-26] MEDS: NS 1,000 ML IV SCH ×3 (01:21→21:44)
[2019-05-26] MEDS: TYLENOL PO PRN (05:40)
[2019-05-26] MEDS: HUMALOG (PARKWAY) SUBQ SCH ×4 (06:29→21:43)
[2019-05-26] MEDS: PRILOSEC PO SCH (06:29)
[2019-05-26] MEDS: VOLTAREN PO SCH ×3 (08:47→21:29)
[2019-05-26] MEDS: PRINIVIL PO SCH (08:47)
[2019-05-26] MEDS: LYRICA PO SCH ×2 (08:47→21:29)
[2019-05-26] MEDS: HUMULIN R (PARKWAY) SUBQ SCH ×3 (08:47→16:12)
[2019-05-26] MEDS: CARAFATE PO SCH ×3 (11:42→21:29)
--- NOTE | 2019-05-26 19:02 | PROGRESS NOTE ---
DATE: 05/26/2019 SUBJECTIVE: Patient states he still feels quite terrible. Still has lots of nausea. He states it may be slightly better than it was yesterday. Denies any fevers or chills. OBJECTIVE: Vital Signs: T-max 100, pulse 97, respiratory rate 18, BP 172/73. General: Patient is awake. He is in no respiratory distress. He is alert and oriented x3. HEENT: Normocephalic. Neck: Supple. Cardiovascular: Regular rate. Chest: Clear. Abdomen: Soft. Extremities: Moves all extremities. Neurologic: No changes. ASSESSMENT: 1. Hypoglycemia. Blood sugars actually are slightly improved, although he did have a low of 82 last night. We did hold his nighttime insulin. He is still not eating well. 2. Nausea and vomiting. 3. Type 2 diabetes with current hypoglycemia but with a chronic A1c of 9. 4. Acute kidney injury, resolved. 5. Hypertension. PLAN: Given that he is still not eating well, we are going to continue to hold his anti- hypoglycemic medications and will continue fluids. Continue Zofran and follow. cc: Abner Hawthorne MD
[2019-05-27] MEDS: TYLENOL PO PRN (00:30)
[2019-05-27] MEDS: NS 1,000 ML IV SCH ×3 (02:23→17:40)
[2019-05-27] MEDS: PRILOSEC PO SCH (06:29)
[2019-05-27] MEDS: HUMALOG (PARKWAY) SUBQ SCH ×4 (06:40→21:34)
[2019-05-27] MEDS: CARAFATE PO SCH ×4 (06:40→20:06)
[2019-05-27] MEDS: HUMULIN R (PARKWAY) SUBQ SCH ×3 (08:10→17:25)
[2019-05-27] MEDS: VOLTAREN PO SCH ×3 (08:10→20:06)
[2019-05-27] MEDS: LEVAQUIN PO SCH (08:11)
[2019-05-27] MEDS: LYRICA PO SCH ×2 (08:11→20:06)
[2019-05-27] MEDS: PRINIVIL PO SCH (08:11)
[2019-05-27 10:22] LABS: HEMATOCRIT 32.7 % (42.0-52.0); HEMOGLOBIN 10.8 g/dL (14.0-18.0); MCH 28.8 PG (27-31); MCV 87.2 FL (81-99); MPV 9.3 FL (7.4-10.4); RBC 3.75 XMIL (4.7-6.1); RDW 12.4 % (11.5-14.5); WBC 7.07 X1000 (4.8-10.8)
[2019-05-27 10:46] LABS: ALBUMIN 2.4 g/dL (3.5-5.0); CREATININE 1.3 mg/dL (0.7-1.2); MAGNESIUM 1.8 mg/dL (1.5-2.7); POTASSIUM 3.3 mmol/L (3.5-5.1); TOTAL BILIRUBIN 0.3 mg/dL (0.20-1.00); TOTAL PROTEIN 5.4 g/dL (6.3-8.3)
[2019-05-27] MEDS: DUONEB (A & A) INH PRN ×3 (11:42→19:57)
--- NOTE | 2019-05-27 12:28 | Diag Imaging Result Doc PS360 ---
EXAM: CHEST-PORTABLE INDICATION: dyspnea TECHNIQUE: One view COMPARISON: 05/23/2019 FINDINGS: There is a right basilar lung nodule that is indeterminate. It is also seen on the recent prior chest x-rays. There is also slight increased opacity at the right lung base as compared to the previous study which could represent a subtle developing infiltrate. There is no discrete pleural fluid collection or pneumothorax. The cardiomediastinal silhouette and central vasculature are grossly unremarkable. IMPRESSION: 1.Slight increased opacity at the right lung base as compared to previous study. Mild developing infiltrate is not excluded. 2.Stable indeterminate right basilar lung nodule. Electronically signed by Jarocho Partida 05/27/2019 12:26 PM
--- NOTE | 2019-05-27 17:04 | PROGRESS NOTE ---
DATE: 05/27/2019 SUBJECTIVE: Patient notes he is feeling a little bit better. Nausea is improved. His abdominal pain is improved, although still present. PHYSICAL EXAMINATION: Vital Signs: Reviewed. Temperature 98 degrees, temperature max 100.6 degrees, pulse 100, respiratory rate 18, BP 128/55. General: Patient is awake. He is alert. His color is actually slightly improved. He still appears somewhat ill. HEENT: Normocephalic. Neck: Supple. Cardiovascular: Regular rate. Chest: Clear, nonlabored. Abdomen: Soft diffusely, but minimally tender. Extremities: Moves all extremities. ASSESSMENT: 1. Nausea, vomiting. 2. Diarrhea. 3. Diabetes. His blood sugars actually have improved, between 94 and 425. 4. Acute kidney injury. Resolved. 5. Hypertension. PLAN: We are going to continue antibiotics. Continue to follow. Cultures are pending. Continue symptomatic medications. Expect to be in the hospital a couple of more days. cc: Abner Hawthorne MD
[2019-05-28] MEDS: NS 1,000 ML IV SCH ×2 (03:05→12:11)
[2019-05-28] MEDS: HUMALOG (PARKWAY) SUBQ SCH ×2 (06:46→11:13)
[2019-05-28] MEDS: PRILOSEC PO SCH (06:55)
[2019-05-28] MEDS: CARAFATE PO SCH ×2 (06:56→11:13)
[2019-05-28] MEDS: VOLTAREN PO SCH (08:38)
[2019-05-28] MEDS: LEVAQUIN PO SCH (08:38)
[2019-05-28] MEDS: PRINIVIL PO SCH (08:38)
[2019-05-28] MEDS: LYRICA PO SCH (08:38)
[2019-05-28] MEDS: HUMULIN R (PARKWAY) SUBQ SCH ×2 (08:38→15:37)
[2019-05-28] MEDS ORDERED: DOXYCYCLINE PO SCH (09:00)
[2019-05-28 11:46] VITALS: BP 143/72
--- NOTE | 2019-05-28 21:10 | DISCHARGE SUMMARY ---
ADMISSION DATE: 05/23/2019 DISCHARGE DATE: 05/28/2019 DISCHARGE DIAGNOSIS: 1. Nausea, vomiting, improved. 2. Febrile illness, resolved. 3. Diabetes with home A1c at 9. 4. Acute kidney injury, resolved. 5. Anemia of chronic disease. 6. Severe hypoglycemia, improved. 7. Hypocalcemia, resolved. 8. Moderate protein-calorie malnutrition. CONSULTATIONS: None. PROCEDURES: None. BRIEF HOSPITAL COURSE: The patient is a 53-year-old male who presented to the hospital with febrile illness, nausea, vomiting. It had been progressively worsening over the last several days. His blood sugars were quite erratic. In fact, he had a couple of blood sugars at 40 and 50. Therefore, his home diabetic medications had to be held during this time. Thankfully, on discharge his blood sugars have improved. He is eating and drinking without difficulty. Notes that he is ready to go home. DISPOSITION: The patient was restarted on his home medications. He will be discharged home. He will follow up outpatient with primary care. This certainly appears to be more of a febrile illness likely related to his recent flu infection. Greater than 30 minutes was spent in total care. cc: Abner Hawthorne MD
== END 2019-05-28 15:28 | disposition home or self-care (01) | DRG 864 ==
LOC: P.ED 16:59 → SUATTDRO 05-24 01:30 → P.EDIPHOLD 05-24 01:30 → P.MEDSURG 05-24 07:04
PROVIDERS: ATTEND Family Medicine

== ENCOUNTER 2019-05-30 13:38 | Inpatient (IN) ==
[2019-05-30] MEDS ORDERED: ZOFRAN IV ONE ×2 (14:04→16:04)
[2019-05-30] MEDS ORDERED: NS 1,000 ML IV ONE ×2 (14:04→15:08)
--- NOTE | 2019-05-30 14:27 | Diag Imaging Result Doc PS360 ---
EXAM: CHEST-2 VIEWS HISTORY: short of breath TECHNIQUE: Two views COMPARISON: 05/27/2019 FINDINGS: The lungs are hyperexpanded. The heart is not enlarged. The vessels are small. There are no infiltrates. No pleural effusions. Right lower lobe granuloma. IMPRESSION: Emphysema Electronically signed by Dheeraj Perry 05/30/2019 2:25 PM
[2019-05-30 14:51] LABS: BE -9.3 mmoll (-3.0-3.0); BLOOD TYPE ARTERIAL; HCO3-(ACT) 17.7 mmoll (20.0-26.0); O2(CT) 15.6 mL/dL (15.0-23.0); PCO2(98.6) 24 mmHg (35-45); PO2(98.6) 90 mmHg (60-100); SAMPLE BLOOD; SAO2 98.8 % (95.0-100.0); THB 11.5 g/dL (11.5-17.4); pH(98.6) 7.38 (7.35-7.45)
[2019-05-30 14:54] LABS: BASO# 0.03 X1000 (0.0-0.2); BASO% 0.3 % (0.0-0.8); EOS# 0.03 X1000 (0.0-0.7); EOS% 0.3 % (0.0-10.0); HEMATOCRIT 35.9 % (42.0-52.0); HEMOGLOBIN 11.9 g/dL (14.0-18.0); IMM GRAN# 0.34 X1000 (0.0-0.04); IMM GRAN% 3.4 % (0.0-0.5); LYMPH# 1.59 X1000 (1.2-3.4); LYMPH% 15.7 % (20.5-51.1); MCH 29.1 PG (27-31); MCHC 33.1 g/dL (33-37); MCV 87.8 FL (81-99); MONO# 0.48 X1000 (0.11-0.59); MONO% 4.8 % (1.7-9.3); MPV 8.8 FL (7.4-10.4); NEUT# 7.63 X1000 (1.4-6.5); NEUT% 75.5 % (42.2-75.2); PLT 412 X1000 (130-400); RBC 4.09 XMIL (4.7-6.1); RDW 13.2 % (11.5-14.5)
[2019-05-30 14:54] LABS: MODALITY ROOM AIR
[2019-05-30 14:55] LABS: ALLEN TEST YES
[2019-05-30] MEDS ORDERED: HUMULIN R SUBQ ONE (15:08)
[2019-05-30] MEDS ORDERED: HUMULIN R (PARKWAY) ONE ×2 (15:11→18:22)
[2019-05-30 15:18] LABS: ACETONE SERUM MODERATE (NEGATIVE)
[2019-05-30 15:26] LABS: ESTIMATED GFR 45
[2019-05-30 15:30] LABS: AGAP 27; ALBUMIN 2.9 g/dL (3.5-5.0); ALKALINE PHOSPHATASE 107 U/L (32-122); BUN 20 mg/dL (8-22); CHLORIDE 98 mmol/L (98-107); COSMO 289; CREATININE 1.6 mg/dL (0.7-1.2); GLUCOSE 261 mg/dL (70-104); GOT 19 U/L (10-34); GPT 17 U/L (10-44); SODIUM 139 mmol/L (136-145); TCO2 14 mmol/L (25-35); TOTAL PROTEIN 7.4 g/dL (6.3-8.3)
--- NOTE | 2019-05-30 16:01 | EKG Report ---
Test Performed on : 05/30/2019 3:36:39 PM Test Reason : WEAK Blood Pressure : / mmHG Vent. Rate : 085 BPM Atrial Rate : 085 BPM P-R Int : 126 ms QRS Dur : 092 ms QT Int : 400 ms P-R-T Axes : 063 069 059 degrees QTc Int : 476 ms Normal sinus rhythm. Moderate voltage criteria for LVH, may be normal variant Borderline ECG When compared with ECG of 23-MAY-2019 18:04, (Unconfirmed) Nonspecific T wave abnormality now evident in Inferior leads T wave inversion now evident in Anterior leads Unconfirmed Result
--- NOTE | 2019-05-30 16:29 | PROVIDER DOCUMENTATION ---
This chart was entered by Lorraine Franco Scribe, acting as scribe for Vivek Agudelo MD. HPI-Abdominal Pain/GI Problem - General Chief Complaint: Nausea/Vomiting Stated Complaint: RETURN VOMITING Time Seen by Provider: 05/30/19 13:57 Source: patient, family Allergies/Adverse Reactions: Patient Allergies Allergy/AdvReac Type Severity Reaction Status Date / Time Penicillins Allergy Unknown Verified 05/16/19 20:36 Home Medications: Home Medication List Medication Instructions Recorded Confirmed Last Taken Type Insulin Glargine [Lantus] 35 unit SUBQ QHS 04/12/15 05/23/19 04/11/15 History Insulin Regular, Human [Humulin R 15 unit SQ TID CC 04/12/15 05/23/19 04/12/15 12:00 History U-500] Pen Needle, Diabetic [Insulin Pen 1 each MC PRN PRN #100 dis.needle 09/22/15 05/23/19 Unknown Rx Needle] Diclofenac Na D.r. [Voltaren] 75 tab PO TID@0900,1500,2100 05/18/19 05/23/19 Unknown History LISINOpril [Prinivil] 5 mg PO DAILY 05/18/19 05/23/19 Unknown History Omeprazole 40 mg PO DAILY@0700 05/18/19 05/24/19 Unknown History Pregabalin 75 mg PO BID 05/18/19 05/24/19 Unknown History Albuterol 2.5MG/Ipratrop 0.5MG 3 ml INH Q4H PRN PRN #180 neb 05/20/19 05/23/19 Unknown Rx [Duoneb (A & A)] Oseltamivir [Tamiflu] 75 mg PO BID #0 cap 05/20/19 05/23/19 Unknown Rx Acetaminophen [Tylenol] 650 mg PO Q6H PRN PRN tab 05/28/19 Unknown Rx Doxycycline 100 mg PO BID #8 tab 05/28/19 Unknown Rx Levofloxacin [Levaquin] 500 mg PO DAILY #5 tab 05/28/19 Unknown Rx - History of Present Illness-ABD Nature of Presenting Problems: 53 yowm presents tot he ed with c/o nausea and vomiting since being dc from [facility] on wednesday. pt on exam is ill appearing and sitting in a wheelchair. Quality of Pain: reports: other (c/o nausea no pain) Severity in ED: reports: moderate Onset/Duration: reports: 2 days ago Timing: reports: still present, intermittent Activities at Onset: reports: light activity Exposure to sick contacts?: Yes Modifying Factors: improves with: nothing. worse with: eating Associated Symptoms: reports: EENT symptoms (nasal congestion), fatigue, malaise , nausea, vomiting, weakness. denies: back/neck pain, chest pain, fever/chills Last BM: last night Dark Stools Present?: reports: none noticed Rectal Bleeding: reports: none # of Diarrhea Episodes: 0 Rectal Pain: reports: none # of Vomiting Episodes: 4 (any fluids PO ) Emesis Description: reports: other (fluiids taken po) Bruising or Bleeding Gums?: No Similar Symptoms Previously?: Yes Recently seen or treated by another doctor?: Yes (dc from [facility] per pt) Review of Systems - Adult - REVIEW OF SYSTEMS - ADULT Constitutional: reports: see HPI, fatique. denies: chills, fever Eyes: reports: no symptoms reported Ears, Nose, Mouth & Throat: reports: see HPI, other (nasal congestion) Cardiovascular: denies: chest pain, palpitations Respiratory: denies: cough, shortness of breath, wheezing Gastrointestinal: reports: see HPI, nausea, vomiting Genitourinary: reports: no symptoms reported Musculoskeletal: denies: back pain, neck pain Integumentary: reports: no symptoms reported Neurological: denies: dizziness/vertigo, headache/migraines Psychiatric: reports: no symptoms reported Endocrine: reports: no symptoms reported Hematologic/Lymphatic: reports: no symptoms reported Allergic/Immunologic: reports: no symptoms reported All Other Systems: Reviewed and Negative Past History - Adult - PAST MEDICAL HISTORY-ADULT Review of Records: reports: Old Records Reviewed, Nursing Assessment Review, Medications Reviewed, Social history reviewed & non-contributory. Major Childhood Illnesses: reports: denies history Cardiovascular: reports: HTN, hyperlipidemia Respiratory: reports: denies history Gastrointestinal: reports: denies history Genitourinary: reports: denies history Musculoskeletal: reports: denies history Neurological: reports: denies history Psychiatric: reports: denies history Endocrine/Immune: reports: Diabetes Diabetes controlled by:: Insulin Dependent Other Conditions: reports: denies history - PRIOR SURGERIES/PROCEDURES Surgical/Procedure History: reports: none - IMMUNIZATION STATUS Childhood Immunizations: See Nurse Assessment Flu Vaccine: See Nurse Assessment - FAMILY HISTORY Family History: reviewed, not pertinent - SOCIAL HISTORY Smoking: quit greater than 1 year Substance Use: denies Living Situation: family Physical Exam-General - CONSTITUTIONAL General Appearance: appears well (ill apearaing), alert, mild distress, thin - EYES Eyes: PERRL/EOMI, pale conjunctivae - HEAD, EARS, NOSE, MOUTH & THROAT HENMT: other (nasal congestion). negative: moist mucous membranes (dry oral) - NECK Neck: full range of motion, normal inspection - RESPIRATORY Respiratory: chest non-tender, lungs clear, normal breath sounds - CARDIOVASCULAR Cardiovascular: normal peripheral pulses, regular rate, rhythm - CHEST (BREASTS) Chest/Breast: deferred - GASTROINTESTINAL (ABDOMEN) Abdominal Exam: soft - GENITOURINARY Male Genitalia: deferred Rectal Exam: deferred Hemoccult Exam: deferred - LYMPHATIC Lymphatic: no adenopathy - MUSCULOSKELETAL Back Exam: no CVA tenderness, no vertebral tenderness Extremity: other (pt sitting in wheelchair) - SKIN Integumentary: pallor - NEUROLOGIC Neurologic: grossly normal. negative: facial droop, focal weakness - PSYCHIATRIC Psych/Mental Status: oriented x 3 Progress - PLAN OF CARE/RESULTS Progress/Plan/Lab Results: Vital Signs - 8 hr 05/30/19 13:41 Temperature 97.4 F L Pulse Rate 97 H Respiratory Rate 16 Blood Pressure 117/68 O2 Sat by Pulse Oximetry 99 Laboratory Results - last 24 hr 05/30/19 13:55 POC Glucose 251 H Result Diagrams: 05/30/19 14:30 05/30/19 14:30 - REASSESSMENT Reassessment #1 Time Reassessed: 16:19 Status: improving ( at bedside) - EKG 1 Time of EKG reading by physician:: 15:36 EKG Read and Signed by:: Vivek Agudelo EKG Interpretation (*Must complete 3 of following elements*): Normal Rate: 85 Rhythm: nsr [place]: normal QRS: LVH [place] Interval: normal ST Wave: normal - XRAY 1 XRAY: Bilateral XRAY Study: Chest Impression: See EMR Report (EXAM: CHEST-2 VIEWS HISTORY: short of breath TECHNIQUE: Two views COMPARISON: 05/27/2019 FINDINGS: The lungs are hyperexpanded. The heart is not enlarged. The vessels are small. There are no infiltrates. No pleural effusions. Right lower lobe granuloma. IMPRESSION: Emphysema Electronically signed by Dheeraj Perry 05/30/2019 2:25 PM 05/30/19 1425 Interpreting Physician: Dheeraj Perry MD Dictated Date/Time: 05/30/19 1424 cc: Vivek Agudelo MD; Abner Hawthorne MD) - CONSULTS/PCP/HOSPITALIST Notification #1 *Consult/PCP/Hospitalist*: hospitalist dr hawthorne Time Discussed: 16:08 Consult Disposition: Will see in ED, Admit Departure - Departure Date of Disposition Decision: 05/30/19 Time of Disposition Decision: 16:27 DIAGNOSIS: Flu DKA (diabetic ketoacidoses) Qualifiers: Diabetes mellitus type: type 2 Diabetes mellitus complication detail: without coma Qualified Code(s): E11.10 - Type 2 diabetes mellitus with ketoacidosis without coma Vomiting Qualifiers: Vomiting type: unspecified Vomiting Intractability: intractable Nausea presence: with nausea Qualified Code(s): R11.2 - Nausea with vomiting, unspecified COPD (chronic obstructive pulmonary disease) Qualifiers: COPD type: unspecified COPD Qualified Code(s): J44.9 - Chronic obstructive pulmonary disease, unspecified Disposition: ADMITTED INPATIENT 09 Certified Medical Emergency: Emergent Condition: Stable Additional Instructions: ED Follow Up Instructions: You have been treated by a care provider in the Emergency Department. These instructions are being provided to you so you can have an understanding of how to care for yourself upon discharge. Upon discharge from the Emergency Department, you are responsible for making arrangements for follow-up care by a physician of your choice. Take all prescribed medications as directed. Return to the Emergency Department immediately for any new or worsening symptoms. You may call the Physician Referral phone number at [phone] to obtain a list of Physicians who are taking new patients. Referrals and Follow-Ups: Abner Hawthorne MD [Primary Care Provider] - - Critical Care Note This patient required my direct & personal management of CC.: No Attestation - Physician/ JOSE Attestation Patient care was provided by Advanced Practice Provider:: No The physician spent face to face time with patient:: Yes Advanced Practice Provider documentation review:: Supervising physician onsite and consulted in the evaluation and care of this patient. The physician did have a face to face encounter with the patient. This chart was documented by the indicated scribe, (Lorraine Franco Scribe) and accurately reflects the services I performed and decisions made by me, Vivek Agudelo MD, as attested by the provider's signature.
[2019-05-30] MEDS ORDERED: HUMULIN R (PARKWAY) IV ONE (18:05)
[2019-05-30] MEDS ORDERED: SODIUM PHOSPHATE 30 MMOL in D5W 250 ML IV PRN ×2 (18:05→22:11)
[2019-05-30] MEDS ORDERED: MAGNESIUM SULFATE 2 GM/S.W.I. 2 GM/50 ML IVPB IV PRN ×2 (18:05→22:12)
[2019-05-30] MEDS ORDERED: POTASSIUM CHLORIDE 20 MEQ/SWI 20 MEQ/100 ML IVPB IV PRN ×2 (18:05→22:12)
[2019-05-30] MEDS ORDERED: D50W SYRINGE IV PRN (18:05)
[2019-05-30] MEDS ORDERED: HUMULIN R 100 UNIT in NS 100 ML IV SCH (18:15)
[2019-05-30] MEDS ORDERED: NS 1,000 ML IV SCH (18:15)
[2019-05-30] MEDS ORDERED: DUONEB (A & A) INH PRN (18:18)
[2019-05-30] MEDS ORDERED: NS 100 ML ONE (18:22)
[2019-05-30] MEDS: NS 1,000 ML IV SCH ×3 (18:37→22:37)
[2019-05-30] MEDS ORDERED: D5 NS 1,000 ML IV SCH (18:45)
[2019-05-30 19:07] LABS: URINE SOURCE CLEAN CATCH
[2019-05-30 19:23] LABS: BILIRUBIN URINE NEGATIVE (NEGATIVE); BLOOD URINE NEGATIVE (NEGATIVE); COLOR YELLOW; GLUCOSE URINE 500 mg/dL (NEGATIVE); KETONE URINE >150 mg/dL (NEGATIVE); LEUKOCYTES URINE NEGATIVE (NEGATIVE); NITRITE URINE NEGATIVE (NEGATIVE); PROTEIN URINE 50 mg/dL (NEGATIVE); TURBIDITY URINE CLEAR (CLEAR); UR EPITHELIAL CELLS <10 /HPF (<10); URINE BACTERIA NEGATIVE /HPF; URINE RBC <10 /HPF (<10); URINE WBC <10 /HPF (<10); UROBILINOGEN URINE NORMAL (NORMAL)
[2019-05-30 19:55] LABS: UR AMPHETAMINES QUAL NONE DETECTED (NONE DETECT); UR BARBITUATES QUAL NONE DETECTED (NONE DETECT); UR BENZODIAZEPIN QUAL NONE DETECTED (NONE DETECT); UR CANNABINOIDS QUAL NONE DETECTED (NONE DETECT); UR COCAINE QUAL NONE DETECTED (NONE DETECT); UR METHADONE QUAL NONE DETECTED (NONE DETECT); UR OPIATES QUAL NONE DETECTED (NONE DETECT); UR OXYCODONE QUAL NONE DETECTED (NONE DETECT); UR PCP QUAL NONE DETECTED (NONE DETECT)
--- NOTE | 2019-05-30 20:37 | HISTORY AND PHYSICAL ---
CHIEF COMPLAINT: Vomiting, high blood sugar. HISTORY OF PRESENT ILLNESS: This is a 53-year-old gentleman with a history of diabetes mellitus type 2, hypertension, who presents to the emergency room complaining of intractable vomiting. He was discharged from the hospital on Wednesday, and stated that he felt good through the day Wednesday, but Wednesday, he attempted to eat, started vomiting, and it has been persistent throughout. He denies any black or bloody vomitus or stools. PAST MEDICAL HISTORY: 1. Diabetes mellitus type 2. 2. Hypertension. PAST SURGICAL HISTORY: Tonsillectomy. FAMILY HISTORY: Mother had no reported problems. Father with a CVA. SOCIAL HISTORY: He denies alcohol, tobacco, or illicit drug use. ALLERGIES: Penicillin. HOME MEDICATIONS: A list will be obtained by the nursing staff, and once verified and reviewed, will restart as appropriate. REVIEW OF SYSTEMS: Discussed with patient with pertinent positives stated in the HPI. He denied any syncope or dizziness, any chest pain or palpitations, any shortness of breath, fevers or chills, any black or bloody vomitus or stools, any hematuria, dysuria, frequency, urgency. PHYSICAL EXAMINATION: GENERAL: This is a 53-year-old gentleman who is lying on the stretcher in the emergency room in mild distress. VITAL SIGNS: Blood pressure is 117/70, with a heart rate of 82. Respirations are 18. Temperature is 97.4 degrees, with room air saturations 98 to 99 percent. EYES: Pupils are equal, round, react to light. EOMs are intact. Sclerae are anicteric. HEENT: Head is normocephalic, atraumatic. Mucous membranes are dry. NECK: Supple with trachea midline. CARDIOVASCULAR: Regular rate and rhythm. S1 and S2 appreciated. No murmurs, no rubs. He has no lower extremity edema. Calves are nontender bilaterally with peripheral pulses palpable x4 extremities. PULMONARY: Breath sounds are clear with no increased work of breathing noted. Chest rises and falls symmetric to respiration. GASTROINTESTINAL: Abdomen is soft, nondistended, with bowel sounds in all 4 quadrants. NEUROLOGIC: Alert and oriented x3. SKIN: Warm and dry. LABORATORY AND DIAGNOSTIC DATA: WBC is 10, with hemoglobin 11.9, hematocrit 35.9, and platelets of 412,000. Sodium is 139, potassium 4, BUN 20, creatinine 1.6, with a glucose of 261. Acetone is moderate. ABGs, pH is 7.38, with pCO2 of 24, PO2 of 90, and bicarbonate of 17. He does have a anion gap of 27. Chest x-ray revealed emphysema. ASSESSMENT AND PLAN: 1. Metabolic acidosis. Causes could be multifactorial. This could be diabetic ketoacidosis. This also could be starvation acidosis as he has not been able to tolerate food in well over a week. 2. Intractable nausea and vomiting. He will be n.p.o. at present. We will give IV hydration and use Zofran for nausea. We will consult Gastroenterology to review as this has been persistent. He most likely will need to have an EGD. 3. History of chronic obstructive pulmonary disease. We will identify home medications and continue as appropriate. We will have DuoNeb q.4 hours p.r.n. 4. Acute kidney injury overlying chronic kidney disease. In reviewing the patient's past records, his baseline creatinine is 1.2. We will continue with IV hydration, trend labs, renal dose medications as appropriate. 5. Hypertension. He will be transferred to [facility] with DKA protocol and GI will be consulted. Further treatments pending hospital course. We will give Protonix b.i.d. The patient was examined and plan was discussed with Dr. Hawthorne. Dictated by ANJANA Max for Abner Hawthorne MD cc: ANJANA Max MD
[2019-05-30 21:50] LABS: CALCIUM 8.1 mg/dL (8.8-10.2); CREATININE 1.3 mg/dL (0.7-1.2); PHOSPHORUS 2.8 mg/dL (2.7-4.5); POTASSIUM 3.8 mmol/L (3.5-5.1)
--- NOTE | 2019-05-30 21:55 | HISTORY AND PHYSICAL ---
ADDENDUM: Patient seen and examined by myself. Full note dictated and discussed with nurse practitioner. Patient presented to the hospital with nausea and vomiting. He actually was in the hospital a couple of days ago for similar symptoms. At that point, he had actually had several episodes of hypoglycemia. In fact, his blood sugar had dropped down to 39 at one point. His insulin was adjusted. On discharge, however, his blood sugars were in the low 200s. He was awake, alert. He was eating with no difficulty. Unfortunately, after going home, he started again exhibiting nausea and has not been drinking well. He presented back to the hospital with volume depletion, dehydration, epigastric abdominal pain. At this point, we are going to admit him back to the hospital and ask GI for assistance as he will likely need an EGD to attempt to delineate the reason for his persistent nausea. Blood sugars are elevated. He actually is moderate acetone positive, although this is likely more due to starvation ketosis. Regardless, we will place him on insulin and will follow cc: Abner Hawthorne MD [facility]
[2019-05-30] MEDS: PROTONIX IV SCH (22:37)
[2019-05-30] MEDS: ZOFRAN IV PRN (22:56)
[2019-05-30] MEDS: HUMULIN R SUBQ SCH (23:00)
[2019-05-31] MEDS: HUMULIN R SUBQ SCH ×3 (00:33→06:16)
[2019-05-31] MEDS ORDERED: PHENERGAN IV PRN (00:51)
[2019-05-31] MEDS: SODIUM CHLORIDE 0.9% INJ SCH ×2 (01:12→08:15)
[2019-05-31] MEDS: PHENERGAN IV PRN (01:12)
[2019-05-31 02:01] LABS: CALCIUM 8.2 mg/dL (8.8-10.2); CREATININE 1.6 mg/dL (0.7-1.2); PHOSPHORUS 1.6 mg/dL (2.7-4.5); POTASSIUM 3.3 mmol/L (3.5-5.1)
[2019-05-31] MEDS: NS 1,000 ML IV SCH ×3 (06:18→22:02)
[2019-05-31] MEDS: ZOFRAN IV PRN ×2 (06:19→23:34)
[2019-05-31 06:30] LABS: BASO# 0.03 X1000 (0.0-0.2); BASO% 0.4 % (0.0-0.8); EOS# 0.03 X1000 (0.0-0.7); EOS% 0.4 % (0.0-10.0); HEMATOCRIT 31.1 % (42.0-52.0); HEMOGLOBIN 10.4 g/dL (14.0-18.0); IMM GRAN# 0.19 X1000 (0.0-0.04); IMM GRAN% 2.8 % (0.0-0.5); LYMPH# 1.37 X1000 (1.2-3.4); MCH 29.4 PG (27-31); MCHC 33.4 g/dL (33-37); MCV 87.9 FL (81-99); MONO# 0.37 X1000 (0.11-0.59); MONO% 5.4 % (1.7-9.3); MPV 8.4 FL (7.4-10.4); NEUT# 4.87 X1000 (1.4-6.5); PLT 331 X1000 (130-400); RBC 3.54 XMIL (4.7-6.1); RDW 13.3 % (11.5-14.5); WBC 6.86 X1000 (4.8-10.8)
[2019-05-31 07:18] LABS: CALCIUM 8.1 mg/dL (8.8-10.2); CREATININE 1.4 mg/dL (0.7-1.2); POTASSIUM 3.4 mmol/L (3.5-5.1)
[2019-05-31] MEDS: PROTONIX IV SCH ×2 (08:15→20:54)
--- NOTE | 2019-05-31 08:27 | PROGRESS NOTE ---
DATE: 05/31/2019 SUBJECTIVE: Patient reports feeling tired and still nauseated. No other issues noted as per nursing staff overnight. OBJECTIVE: Vital Signs: Temperature 99.6 degrees, heart rate 82, respiratory 14, blood pressure 128/66, O2 saturation 96% on room air. General Examination: This is a 53-year-old, male, lying in bed in no acute distress. Cardiovascular exam: S1, S2 heard. No murmurs, gallops, or rubs. Regular rate and rhythm. Respiratory exam: Clear bilaterally to auscultation. No work of breathing or using accessory muscles. Abdomen: Soft, nontender to palpation. Nondistended. Bowel sounds present. No organomegaly. Extremities: No clubbing, cyanosis, or edema. Peripheral pulses present in both legs. Neurological exam: Patient is alert and oriented x3. Moves 4 extremities. LABORATORY DATA: The last BMP that we have is from today at 6:10 a.m. which shows sodium 146, potassium 3.4, bicarbonate 18, anion gap is 17. BUN 15 with creatinine 1.4 and phosphorus 2.0. ASSESSMENT AND PLAN: 1. Diabetic ketoacidosis versus starvation ketosis secondary to persistent vomiting. The patient continues to feel nauseated, but not vomiting. We will continue with intravenous fluids. It is very important to remark that at admission it was ordered insulin drip to this patient but it was never started. Now his blood sugars are better but still feeling nauseated and not able to have anything by mouth yet. Will only provide Humalog sliding scale 2. Intractable nausea and vomiting. That is the reason why this patient was transferred from [facility] to here. Gastroenterology has been consulted. We will see if they will prefer to have an esophagogastroduodenoscopy or not. 3. Chronic obstructive pulmonary disease. Patient is not on any exacerbation. We will provide breathing treatments as needed only. 4. Chronic kidney disease stage I. Baseline creatinine has been 1.2; at admission was 1.6, but getting better and is 1.4 today. We will continue to monitor. 5. Hypertension. Blood pressure is under control. We will continue with the same management. 6. Disposition: Considering patient is not on insulin drip will transfer him out of ICU today. cc: Nelson Clifton MD [facility]
[2019-05-31] MEDS: HUMALOG SUBQ SCH ×2 (11:17→17:12)
[2019-05-31] MEDS ORDERED: LANOXIN ONE ×2 (11:30→11:31)
[2019-05-31] MEDS ORDERED: NS 250 ML ONE (11:30)
[2019-05-31 14:07] LABS: CALCIUM 7.9 mg/dL (8.8-10.2); CREATININE 1.4 mg/dL (0.7-1.2); POTASSIUM 3.4 mmol/L (3.5-5.1)
[2019-05-31] MEDS ORDERED: POTASSIUM CHLORIDE 20 MEQ/SWI 20 MEQ/100 ML IVPB IV PRN (17:41)
[2019-05-31] MEDS ORDERED: COMPAZINE IV PRN (17:41)
[2019-05-31] MEDS ORDERED: D50W SYRINGE IV PRN (17:41)
[2019-05-31] MEDS ORDERED: POTASSIUM CHLORIDE 20% LIQUID PO PRN (17:41)
[2019-05-31] MEDS ORDERED: HUMULIN R IV ONE (17:41)
[2019-05-31] MEDS ORDERED: HUMULIN R 100 UNIT in NS 100 ML IV SCH (17:45)
[2019-05-31] MEDS: D5 1/2 NS 1,000 ML IV PRN (18:16)
[2019-05-31 18:50] LABS: CREATININE 1.3 mg/dL (0.7-1.2); MAGNESIUM 1.9 mg/dL (1.5-2.7); PHOSPHORUS 2.5 mg/dL (2.7-4.5); POTASSIUM 3.7 mmol/L (3.5-5.1)
--- NOTE | 2019-05-31 19:42 | GASTROENTEROLOGY CONSULTATION ---
DATE: 05/31/2019 REASON FOR CONSULT: Persistent vomiting. HISTORY OF PRESENT ILLNESS: Mr. Newby is a 53-year-old male who was recently admitted to [facility] with complaints of flu-like symptoms, chronic renal failure and elevated blood sugars. He was discharged home and then he was back to [facility] last night, he was sent to [facility] with complaints of abdominal pain, nausea and vomiting, elevated blood sugars. The patient is mentioning that this has been going on for the last 3 weeks onwards. He said he had felt a little bit better on Wednesday, but when he tried to eat on Wednesday, he was throwing up. He has denied noticing any blood in his vomit. The patient has also denied having any bowel movements and he does complain of abdominal tenderness all over. He is a patient of Dr. Yeager and recently, on 04/06/2019, Dr. Yeager performed a colonoscopy and an EGD. His EGD showed that he had moderately severe grade 3 erosive reflux induced esophagitis in the middle third of the esophagus, distal third of the esophagus, and the GE junction. An esophageal stricture was found. Dilation was done with a 54-Jamaican dilator. The stomach showed gastritis in the antrum. Biopsies were taken and colonoscopy showed that he had diverticulosis in the colon. The patient's antral biopsy revealed that he has lymphocytic gastritis, moderate with crush artifact, and intestinal metaplasia. It was negative for H pylori bacteria. No dysplasia or neoplasia were noted. PAST MEDICAL HISTORY: Diabetes, hypertension, hyperlipidemia, and recent flu. PAST SURGICAL HISTORY: Tonsillectomy. ALLERGIES: He is allergic to penicillin. SOCIAL HISTORY: The patient is . He has 1 kid. He says he has given up smoking for the last 1 year, but he does smoke weed. FAMILY HISTORY: Significant for heart disease. HOME MEDICATIONS: 1. Insulin Lantus 35 units at bedtime. 2. Humulin regular 15 units 3 times a day. 3. Lyrica 75 mg p.o. twice a day. 4. Voltaren 75 mg p.o. 3 times a day. 5. Lisinopril 5 mg p.o. daily. 6. Omeprazole 40 mg p.o. daily. 7. DuoNeb 3 mL inhaler every 4 hours as needed. 8. Tamiflu 75 mg p.o. twice a day. 9. Doxycycline 100 mg p.o. twice a day. 10. Tylenol 650 mg p.o. every 6 hours as needed. 11. Levaquin 500 mg p.o. daily. REVIEW OF SYSTEMS: As per HPI. Otherwise, 12 point review of systems is negative. PHYSICAL EXAMINATION: Vital Signs: Temperature 98.9 degrees, pulse 82, respirations 18, blood pressure 154/76, oxygen saturation 97% on room air. His weight is 155 pounds. BMI is 20.5 kg/m2. General: He is alert, oriented x3, in no acute distress. HEENT: Pale conjunctivae. No icterus. PERRL. Neck: Supple. Lungs: Clear to auscultation. Cardiovascular: Regular rate and rhythm. Abdomen: Soft, tender, mildly distended. Active bowel sounds heard in all 4 quadrants. Extremities: No clubbing, no cyanosis, no edema. Pedal pulses 2+ bilaterally. Neurologic: He is alert and oriented x3. Nonfocal. Cranial nerves 2 through 12 grossly intact. LABORATORY DATA: WBCs of 6.86, RBC is 3.54, hemoglobin 10.4, hematocrit is 31.1, platelet count is 331,000. Sodium 149, potassium 3.7, chloride 111, carbon dioxide 16, anion gap 22, BUN 11, creatinine 1.3, glucose 183, calcium 8.0, phosphorus 2.5, magnesium 1.9. Urinalysis has shown protein of 50, glucose of 500, ketones of greater than 150. Toxicology report has shown moderate acetone level. IMAGING: Chest x-ray yesterday showed emphysema. IMPRESSION AND PLAN: 1. Nausea and vomiting. 2. Abdominal pain. 3. Diabetic ketoacidosis. 4. Diabetes type 2. 5. Hypertension. 6. Substance abuse. PLAN: Mr. Newby is a 53-year-old male with a history of hypertension and diabetes. GI has been consulted for his persistent nausea and vomiting. Patient is currently on Zofran 4 mg intravenously as needed for his nausea. He is also receiving Phenergan 12.5 mg as needed and he is also on Compazine. The patient is on D5 half-normal saline at 125 mL/hour. He is on PPI. We plan to do an EGD tomorrow to find out the cause of his nausea and vomiting. We have discussed the risks, benefits, and alternatives of the procedure to the patient. Further plan of care will be based on the EGD findings. This plan was discussed with Dr. De Santiago. Thank you for your consult. Please call us for any further questions or concerns. Dictated by ANJANA Ramos for Oz De Santiago MD Physician Attestation I have seen and examined the patient. I have discussed and reviewed the note by Paty YEUNG and agree with findings and plan as documented. In brief, Mr. Newby is a 53 year old man with IDDM2, substance abuse, HTN, who presented with DKA in the setting of N/V for 3 weeks. No abdominal pain. EGD and colonoscopy was revealing for moderate to severe esophagitis, non-obstructing stricture s/p dilation, and non-H pylori gastritis. Ddx includes recent DKA, gastroparesis, GERD, esophagitis. Unlikely PUD. Continue PPI BID and prn antiemetics. Correct metabolic derangements, glycemic control. Will plan EGD with Dr. Dc on . MTDD
[2019-05-31 23:04] LABS: CALCIUM 8.2 mg/dL (8.8-10.2); CREATININE 1.4 mg/dL (0.7-1.2); MAGNESIUM 1.8 mg/dL (1.5-2.7); PHOSPHORUS 2.8 mg/dL (2.7-4.5)
[2019-05-31 23:15] LABS: POTASSIUM 4.2 mmol/L (3.5-5.1)
[2019-06-01 01:48] LABS: CALCIUM 8.1 mg/dL (8.8-10.2); CREATININE 1.4 mg/dL (0.7-1.2); MAGNESIUM 1.9 mg/dL (1.5-2.7); POTASSIUM 3.3 mmol/L (3.5-5.1)
[2019-06-01 01:49] LABS: PHOSPHORUS 0.7 mg/dL (2.7-4.5)
[2019-06-01] MEDS ORDERED: SODIUM PHOSPHATE 30 MMOL in NS 250 ML IV ONE (02:15)
[2019-06-01] MEDS: D5 1/2 NS 1,000 ML IV PRN ×2 (02:17→10:16)
[2019-06-01] MEDS: POTASSIUM CHLORIDE 20 MEQ/SWI 20 MEQ/100 ML IVPB IV SCH ×2 (02:17→04:30)
[2019-06-01] MEDS: PHENERGAN IV PRN ×3 (02:31→17:03)
[2019-06-01 04:59] LABS: BASO# 0.02 X1000 (0.0-0.2); BASO% 0.3 % (0.0-0.8); EOS# 0.04 X1000 (0.0-0.7); EOS% 0.7 % (0.0-10.0); HEMATOCRIT 29.4 % (42.0-52.0); HEMOGLOBIN 9.6 g/dL (14.0-18.0); IMM GRAN# 0.11 X1000 (0.0-0.04); IMM GRAN% 1.9 % (0.0-0.5); LYMPH# 1.39 X1000 (1.2-3.4); MCH 28.8 PG (27-31); MCHC 32.7 g/dL (33-37); MCV 88.3 FL (81-99); MONO# 0.28 X1000 (0.11-0.59); MONO% 4.8 % (1.7-9.3); MPV 8.4 FL (7.4-10.4); NEUT# 3.96 X1000 (1.4-6.5); NEUT% 68.3 % (42.2-75.2); PLT 285 X1000 (130-400); RBC 3.33 XMIL (4.7-6.1); RDW 13.3 % (11.5-14.5)
[2019-06-01 05:23] LABS: ESTIMATED GFR > 60
[2019-06-01 05:30] LABS: AGAP 20; BUN 8 mg/dL (8-22); CALCIUM 7.4 mg/dL (8.8-10.2); CHLORIDE 108 mmol/L (98-107); COSMO 296; CREATININE 1.2 mg/dL (0.7-1.2); GLUCOSE 159 mg/dL (70-104); MAGNESIUM 1.7 mg/dL (1.5-2.7); PHOSPHORUS 14.3 mg/dL (2.7-4.5); POTASSIUM 3.1 mmol/L (3.5-5.1); SODIUM 148 mmol/L (136-145); TCO2 20 mmol/L (25-35)
[2019-06-01] MEDS ORDERED: DUONEB (A & A) INH PRN (06:48)
[2019-06-01] MEDS: NS 1,000 ML IV SCH ×3 (07:29→22:06)
[2019-06-01] MEDS: LEVAQUIN 750 MG in NS 150 ML IV SCH (07:49)
--- NOTE | 2019-06-01 08:04 | PROGRESS NOTE ---
DATE: 06/01/2019 SUBJECTIVE: The patient continues to be nauseated but he has not been vomiting. No other issues noted as per nursing staff overnight. OBJECTIVE: Vital Signs: Temperature 99.5 degrees, heart rate 75, respiratory rate 12, blood pressure 128/60, O2 saturation 96% on room air. General: This is a 53-year-old male, lying in bed, in no acute distress. Cardiovascular: S1, S2 heard. No murmurs, gallops, or rubs. Regular rate and rhythm. Respiratory: Clear bilaterally to auscultation. No work of breathing or using accessory muscles. Abdomen: Soft, nontender to palpation. Nondistended. Bowel sounds present. No organomegaly. Extremities: No clubbing, cyanosis, or edema. Peripheral pulses present in both legs. Neurological: Patient is alert and oriented x3. Moves 4 extremities. LABORATORY DATA: White cell count 5.80, hemoglobin 9.6, hematocrit 29.4, platelets 285,000. Potassium 3.1 with glucose 159, anion gap of 20 with bicarbonate 20. ASSESSMENT/PLAN: 1. Diabetic ketoacidosis versus starvation ketosis secondary to persistent vomiting. The patient yesterday around 1 p.m. had BMP repeated which basically showed very elevated anion gap of 23 with low bicarbonate so he was started on insulin drip that at admission he was supposed to be on that but was never started. In any case, we will continue with the drip. The last BMP is kind of confusing because apparently as per nursing staff, they have drawn blood while he was receiving phosphate infusion so that is why the phosphorus 14 and that has affected the rest of the numbers, in this case, anion gap or bicarbonate. In any case will wait for the next BMP that is going to be at 8:30 and we will go from there. 2. Intractable nausea, vomiting. Patient is going to have an EGD as per GI recommendation. 3. COPD. Patient is not on any exacerbation. We will provide breathing treatments as needed only. 4. Chronic kidney disease stage 1. I think that condition is much better. Creatinine is back to normal. 5. Acute kidney injury. Resolved. Continue to monitor. 6. Hypertension. Blood pressure is under control. We will continue with the same medication. 7. Disposition. We will continue monitoring this patient closely. The patient is going to have an EGD today. While he is having an EGD we can stop insulin drip. cc: Nelson Clifton MD
[2019-06-01] MEDS: DUONEB (A & A) INH SCH ×5 (08:06→23:47)
[2019-06-01] MEDS: SODIUM CHLORIDE 0.9% INJ SCH ×2 (08:41→20:44)
[2019-06-01] MEDS: PROTONIX IV SCH ×2 (08:41→20:44)
[2019-06-01] MEDS: SODIUM CHLORIDE 0.9% INJ PRN ×2 (08:42→17:03)
[2019-06-01 11:20] LABS: AGAP 12; BUN 6 mg/dL (8-22); CALCIUM 7.7 mg/dL (8.8-10.2); CHLORIDE 107 mmol/L (98-107); COSMO 281; CREATININE 1.1 mg/dL (0.7-1.2); ESTIMATED GFR > 60; GLUCOSE 145 mg/dL (70-104); MAGNESIUM 1.6 mg/dL (1.5-2.7); PHOSPHORUS 2.3 mg/dL (2.7-4.5); POTASSIUM 2.8 mmol/L (3.5-5.1); SODIUM 141 mmol/L (136-145); TCO2 22 mmol/L (25-35)
--- NOTE | 2019-06-01 11:23 | ENDOSCOPY OPERATIVE NOTE ---
[facility] ENDOSCOPY OPERATIVE NOTE , EGD PROCEDURE REPORT EXAM DATE: 06/01/2019 PATIENT NAME: Nelson Newby MR#: [id number] BIRTHDATE: 1965 ATTENDING: Aleksander Dc MD STATUS: inpatient DENTAL LABORATORY TECHNOLOGY TEACHER: Caty Epstein and Dolores Jones INDICATIONS: The patient is a 53 yr old male here for an EGD due to Nausea vomiting Abdominal Pain D KA Substance abuse COPD Anemia. PROCEDURE PERFORMED: EGD w/ biopsy MEDICATIONS: Per Anesthesia ESTIMATED BLOOD LOSS: None CONSENT: The patient understands the risks and benefits of the procedure and understands that these r isks include, but are not limited to: sedation, allergic reaction, infection, perforation and/or bleeding. Alternative means of evaluation and treatment include, among others: physical exam, x-rays, and/or surgical intervention. The patient elects to proceed with this endoscopic procedure. DESCRIPTION OF PROCEDURE: During pre-op preparation period all mechanical and medical equipment was c hecked for proper function. Hand hygiene and appropriate measures for infection prevention was taken. After the risks, benefits and alternatives of the procedure were thoroughly explained, Informed consent was verified, confirmed and timeout was successfully executed by the treatment team. The patient was anesthetized with topical anesthesia and the [id number] ([id number]) endoscope was introduced through the mouth and advanced to the second portion of the duoden um. Retroflexion was performed in the stomach and revealed no abnormalities. The gastroscope was then slowly withdraw n and removed. The patient's toleration of the procedure was good. ESOPHAGUS: Reflux esophagitis was found in the distal esophagus and at the gastroesophageal junction. Esophagitis was LA Class A: One or more mucosal breaks < 5 mm in maximal length. STOMACH: Mild gastritis (inflammation) was found in the gastric body and gastric antrum. A biopsy wa s performed using cold forceps. Sample sent for histology. Bile was noted in the stomach. DUODENUM: The duodenal mucosa showed no abnormalities in the duodenal bulb, 1st part duodenum, and 2n d part duodenum. ADVERSE EVENTS: There were no complications. IMPRESSIONS: 1. Reflux esophagitis in the distal esophagus and at the gastroesophageal junction 2. Gastritis (inflammation) was found in the gastric body and gastric antrum; biopsy was performed 3. The duodenal mucosa showed no abnormalities in the duodenal bulb, 1st part duodenum, and 2nd part duodenum RECOMMENDATIONS: 1. Await biopsy results 2. Start anti-reflux diet. 3. Begin an anti-reflux lifestyle: avoid acidic foods and drinks (like coffee and soda), do not lie down three hours after eating, elevate the head of your bed 6 to 9 inches, stop smokiing and reduce weight if needed. 4. Start Proton pump inhibitor daily - 30 minutes before a meal 5. Start Miralax 17g QD 6. RTC 4 weeks for Biopsy follow up REPEAT EXAM: Aleksander Dc MD eSigned: Aleksander Dc MD 06/01/2019 11:22 AM CC: CPT CODES: [id number] Upper gastrointestinal endoscopy including esophagus, stomach, and either the du odenum and/or jejunum as appropriate; with biopsy, single or multiple ICD CODES: 535.50 Unspecified gastritis and gastroduodenitis (without hemorrhage) 530.11 Reflux esophagitis The ICD and CPT codes recommended by this software are interpretations from the data that the [facility] staff has captured with the software. The verification of the translation of this report to the ICD and CPT co alexandrea and modifiers is the sole responsibility of the health care institution and practicing physician where this report was generated. [employer] will not be held responsible for the validity of the ICD and CPT codes i ncluded on this report. [facility] assumes no liability for data contained or not contained herein. CPT is a registered tra demark of the [employer]. PATIENT NAME: Nelson Newby MR#: [id number]
[2019-06-01] MEDS ORDERED: POTASSIUM CHLORIDE 60 MEQ in NS 500 ML IV ONE (11:47)
[2019-06-01] MEDS ORDERED: SODIUM PHOSPHATE 35 MMOL in NS 250 ML IV ONE (11:48)
[2019-06-01 17:20] LABS: AGAP 21; BUN 7 mg/dL (8-22); CHLORIDE 98 mmol/L (98-107); COSMO 285; CREATININE 1.2 mg/dL (0.7-1.2); ESTIMATED GFR > 60; GLUCOSE 371 mg/dL (70-104); POTASSIUM 3.7 mmol/L (3.5-5.1); SODIUM 136 mmol/L (136-145); TCO2 17 mmol/L (25-35)
[2019-06-01] MEDS: CARAFATE LIQUID PO SCH ×2 (17:41→20:43)
[2019-06-01] MEDS: HUMALOG SUBQ SCH ×2 (17:43→21:01)
[2019-06-01] MEDS ORDERED: TYLENOL PO PRN (20:54)
[2019-06-01] MEDS ORDERED: CHLORASEPTIC SPRAY MT PRN (20:54)
[2019-06-01] MEDS: ULTRAM PO PRN (21:35)
[2019-06-01 23:45] LABS: AGAP 17; BUN 6 mg/dL (8-22); CALCIUM 7.9 mg/dL (8.8-10.2); CHLORIDE 103 mmol/L (98-107); COSMO 285; CREATININE 1.2 mg/dL (0.7-1.2); ESTIMATED GFR > 60; GLUCOSE 209 mg/dL (70-104); MAGNESIUM 1.5 mg/dL (1.5-2.7); SODIUM 141 mmol/L (136-145); TCO2 21 mmol/L (25-35)
[2019-06-02] MEDS: POTASSIUM CHLORIDE 20 MEQ/SWI 20 MEQ/100 ML IVPB IV SCH ×2 (00:54→04:53)
[2019-06-02] MEDS: ULTRAM PO PRN ×4 (01:39→20:30)
[2019-06-02] MEDS: CARAFATE LIQUID PO SCH ×4 (01:39→20:26)
[2019-06-02 05:20] LABS: BASO# 0.02 X1000 (0.0-0.2); BASO% 0.4 % (0.0-0.8); EOS# 0.04 X1000 (0.0-0.7); EOS% 0.8 % (0.0-10.0); HEMATOCRIT 31.7 % (42.0-52.0); HEMOGLOBIN 10.5 g/dL (14.0-18.0); IMM GRAN# 0.07 X1000 (0.0-0.04); IMM GRAN% 1.4 % (0.0-0.5); LYMPH# 1.43 X1000 (1.2-3.4); LYMPH% 28.3 % (20.5-51.1); MCH 28.9 PG (27-31); MCHC 33.1 g/dL (33-37); MCV 87.3 FL (81-99); MONO# 0.43 X1000 (0.11-0.59); MONO% 8.5 % (1.7-9.3); MPV 8.6 FL (7.4-10.4); NEUT# 3.06 X1000 (1.4-6.5); NEUT% 60.6 % (42.2-75.2); PLT 236 X1000 (130-400); RBC 3.63 XMIL (4.7-6.1); RDW 12.9 % (11.5-14.5); WBC 5.05 X1000 (4.8-10.8)
[2019-06-02 05:46] LABS: AGAP 18; BUN 5 mg/dL (8-22); CALCIUM 7.8 mg/dL (8.8-10.2); CHLORIDE 99 mmol/L (98-107); COSMO 282; ESTIMATED GFR > 60; GLUCOSE 303 mg/dL (70-104); PHOSPHORUS 2.9 mg/dL (2.7-4.5); POTASSIUM 3.7 mmol/L (3.5-5.1); SODIUM 137 mmol/L (136-145); TCO2 20 mmol/L (25-35)
[2019-06-02] MEDS: DUONEB (A & A) INH SCH ×6 (06:16→23:40)
[2019-06-02] MEDS: HUMALOG SUBQ SCH ×4 (06:21→20:14)
[2019-06-02] MEDS: LEVAQUIN 750 MG in NS 150 ML IV SCH (08:52)
[2019-06-02] MEDS: NS 1,000 ML IV SCH (08:52)
[2019-06-02] MEDS: PROTONIX IV SCH ×2 (08:52→20:14)
[2019-06-02] MEDS: MIRALAX PO SCH (08:52)
[2019-06-02] MEDS: PHENERGAN IV PRN (09:01)
[2019-06-02] MEDS ORDERED: MAGNESIUM SULFATE 2 GM/S.W.I. 2 GM/50 ML IVPB IV ONE (10:00)
--- NOTE | 2019-06-02 10:46 | GASTROENTEROLOGY PROGRESS NOTE ---
DATE: 06/02/2019 OBJECTIVE: Mr. Newby is a 53-year-old male resting in bed. The patient complained of being nauseated all the time, but he has denied any vomiting or abdominal pain. The patient is currently NPO. He has denied having any bowel movements today. OBJECTIVE: Vital Signs: Temperature 98.2 degrees, pulse 94, respirations 16, blood pressure 155/77, oxygen saturation 97% on room air. The patient's weight is 177 pounds. BMI is 23.4 kg/m2. General: He is alert, oriented x3, and in no acute distress. HEENT: Pale conjunctivae. No icterus. PERRL. Neck: Supple. Lungs: Clear to auscultation. Cardiovascular: Patient is tachycardic. Abdomen: Soft, tender, mildly distended. Active bowel sounds heard in all 4 quadrants. Extremities: No clubbing, no cyanosis, no edema. Pedal pulses 2+ present bilaterally. Neurologic: He is alert, oriented x3. LABORATORY DATA: WBC 5.05, RBCs 3.63, hemoglobin is 10.5, hematocrit is 31.7, platelet count is 236,000. Sodium is 137, potassium 3.7, chloride 99, carbon dioxide 20, anion gap is 18, BUN is 5, creatinine is 1.0, glucose is 303, calcium is 7.8, phosphorus 2.9, magnesium is 1.4. EGD FINDINGS: Reflux esophagitis in the distal esophagus and at the GEJ. Gastritis in the gastric body and gastric antrum, biopsy was performed. Duodenal mucosa showed no abnormalities. IMPRESSION AND PLAN: Nausea and vomiting Abdominal pain Diabetes type II DKA Hypertension Substance abuse PLAN: Mr. Newby is a 53-year-old male with a history of hypertension and diabetes. Gastroenterology is following him for his nausea and vomiting. An endoscopy was done yesterday, he had reflux esophagitis in the distal esophagus and at the GEJ, gastritis in the gastric body and the gastric antrum. Biopsy was performed. The duodenal mucosa showed no abnormalities. Awaiting the results of the biopsy. We will continue the patient with PPIs twice a day. The patient is on antiemetic, Zofran, Phenergan, and Compazine for his nausea and vomiting. He is also on Reglan per PCP, we will monitor for s/e of tardive dyskinesia. He is receiving IV fluids normal saline at 100 mL/h and on antibiotic Levaquin per PCP. he is on Carafate liquid 1 g p.o. every 6 hours. He has not had a bowel movement for the past few days, he is on a bowel regimen, MiraLAX 17 grams p.o. daily. The patient's magnesium levels were low today, it was 1.4 today. As per PCP, he is receiving magnesium sulfate 2 g at 50 mL/h IV, 1 time dose. Per PCP, patient has orders for gastric emptying study. We will continue to monitor the patient and follow the plan of care per PCP. This plan was discussed with Dr. De Santiago. Please call us for any further questions or concerns. Dictated by ANJANA Ramos for Oz De Santiago MD [facility]
--- NOTE | 2019-06-02 11:01 | PROGRESS NOTE ---
DATE: 06/02/2019 SUBJECTIVE: According to nursing staff, he continues to be nauseated. He is able to tolerate 2 pieces of Jell-O and then he started vomiting. No other issues noted as per nursing staff. OBJECTIVE: Vital Signs: Temperature 98.2 degrees, heart rate 94, respiratory 16, blood pressure 155/77, O2 saturation 97% on room air. General Examination: This is a 53-year-old male lying in bed in no acute distress. Cardiovascular: S1 and S2 heard. No murmurs, gallops, or rubs. Regular rate and rhythm. Respiratory: Clear bilaterally to auscultation. No work of breathing or using accessory muscles. Abdomen: Soft, nontender to palpation. Bowel sounds present. No organomegaly. Extremities: No clubbing, cyanosis, or edema. Peripheral pulses present in both legs. Neurological: Patient alert and oriented x3. Moves all 4 extremities. LABORATORY DATA: CBC is okay. BMP reveals glucose 303 with normal creatinine and anion gap 18, bicarbonate 20. ASSESSMENT/PLAN: 1. Starvation ketosis. Patient continues to be vomiting repetitively. Because of this intractable nausea and badly controlled diabetes, I think this patient may have diabetic gastroparesis, so will stop antinausea medication. We will start Reglan on this patient 5 mg IV q.6 hours. We are going to order gastric emptying studies and we will go from there. We will continue to monitor this patient closely. 2. Chronic obstructive pulmonary disease. Patient is no longer in any exacerbation. We will continue to use breathing treatments as needed only. 3. Acute kidney injury, resolved. 4. Hypertension. Blood pressure is under control. We will continue with same medications. 5. Disposition. We will continue to monitor this patient closely. EGD did not show any major abnormalities, so at this point, we will continue to monitor this patient closely. cc: Nelson Clifton MD
[2019-06-02] MEDS: REGLAN IV SCH ×3 (12:20→22:46)
--- NOTE | 2019-06-02 16:06 | Diag Imaging Result Doc PS360 ---
EXAM: GASTRIC EMPTYING 06/02/2019 HISTORY: frequent nausea and vomiting TECHNIQUE: 535 uCi of technetium 99m in oatmeal COMMENT: The half-time of gastric emptying is 113.4 minutes which is above the normal range. IMPRESSION: Delayed gastric emptying. Electronically signed by Eduard Christiansen 06/02/2019 4:03 PM
[2019-06-03] MEDS: NS 1,000 ML IV SCH (02:31)
[2019-06-03] MEDS: CARAFATE LIQUID PO SCH ×5 (02:32→21:56)
[2019-06-03] MEDS: DUONEB (A & A) INH SCH ×5 (03:04→23:54)
[2019-06-03] MEDS: REGLAN IV SCH ×4 (04:32→21:56)
[2019-06-03] MEDS: ULTRAM PO PRN ×3 (04:43→21:56)
[2019-06-03 05:46] LABS: BASO# 0.03 X1000 (0.0-0.2); BASO% 0.4 % (0.0-0.8); EOS# 0.05 X1000 (0.0-0.7); EOS% 0.7 % (0.0-10.0); HEMATOCRIT 34.4 % (42.0-52.0); HEMOGLOBIN 11.3 g/dL (14.0-18.0); IMM GRAN# 0.07 X1000 (0.0-0.04); LYMPH# 1.27 X1000 (1.2-3.4); MCHC 32.8 g/dL (33-37); MCV 88.4 FL (81-99); MONO# 0.43 X1000 (0.11-0.59); MONO% 6.1 % (1.7-9.3); MPV 8.7 FL (7.4-10.4); NEUT# 5.19 X1000 (1.4-6.5); NEUT% 73.8 % (42.2-75.2); PLT 216 X1000 (130-400); RBC 3.89 XMIL (4.7-6.1); RDW 12.8 % (11.5-14.5); WBC 7.04 X1000 (4.8-10.8)
[2019-06-03] MEDS: HUMALOG SUBQ SCH ×4 (06:30→21:56)
[2019-06-03 06:46] LABS: AGAP 24; BUN 8 mg/dL (8-22); CALCIUM 7.9 mg/dL (8.8-10.2); CHLORIDE 95 mmol/L (98-107); COSMO 279; CREATININE 1.1 mg/dL (0.7-1.2); ESTIMATED GFR > 60; GLUCOSE 360 mg/dL (70-104); PHOSPHORUS 2.7 mg/dL (2.7-4.5); POTASSIUM 3.9 mmol/L (3.5-5.1); SODIUM 133 mmol/L (136-145); TCO2 14 mmol/L (25-35)
[2019-06-03] MEDS ORDERED: ZOFRAN IV PRN (10:24)
[2019-06-03] MEDS: LEVAQUIN 750 MG in NS 150 ML IV SCH (10:43)
[2019-06-03] MEDS: SODIUM CHLORIDE 0.9% INJ SCH (10:43)
[2019-06-03] MEDS: MIRALAX PO SCH ×2 (10:43→21:56)
[2019-06-03] MEDS: PROTONIX IV SCH ×2 (10:43→21:55)
[2019-06-03] MEDS: LIPOSYN 20% 250 ML IV SCH (13:10)
[2019-06-03] MEDS: CLINIMIX E 4.25%-5% SOLUTION 1,000 ML IV SCH ×2 (13:10→21:56)
[2019-06-03] MEDS: LANTUS INSULIN SUBQ SCH (13:11)
--- NOTE | 2019-06-03 15:33 | PROGRESS NOTE ---
DATE: 06/03/2019 SUBJECTIVE: Patient reports continued to be nauseated. He is just eating a little bit of Jell-O and then he started vomiting again. He is also having some cough with more whitish secretion. OBJECTIVE: Vital Signs: Temperature 98.0, heart rate 108, respiratory rate 16, blood pressure 156/80, O2 saturation 99% on room air. General Examination: This is a 53-year-old male, lying in bed, in no acute distress. Cardiovascular: S1, S2 heard. No murmurs, gallops, or rubs. Regular rate and rhythm. Respiratory: Some coarse breath sounds noted in both pulmonary bases. Patient not using any accessory muscles or having work of breathing. Abdomen: Soft, nontender to palpation. Bowel sounds present. No organomegaly. Extremities: No clubbing, cyanosis, or edema. Peripheral pulses present in both legs. Neurological: Patient is alert and oriented x3. Moves 4 extremities. LABORATORY DATA: The BMP shows a carbon dioxide of 14 with anion gap of 24 and glucose 360. ASSESSMENT/PLAN: 1. Starvation ketosis. Patient continues to be vomiting, so bicarbonate is going down. Because this intractable nausea and vomiting, and he has not been able to eat anything for the last 4 days, I will start on Clinimix and lipids. We will continue with sliding scale insulin as well. 2. Diabetic gastroparesis. Considering that this patient is still vomiting, I will increase the doses of Reglan from 5 to 10 mg IV q. 6 hours as scheduled and Zofran p.r.n. We will continue clear liquid diet but of course, because this patient has not been able to eat for the last 4 days. We will provide Clinimix and lipids. 3. COPD. Patient is still having some cough so I am going to change the doses of DuoNeb to q. 4 hours scheduled. Will continue to monitor. 4. Acute kidney injury, resolved. 5. Hypertension. Blood pressure is under control. We will continue with the same medication. 6. Disposition. We will continue to monitor this patient closely. He is still vomiting. cc: Nelson Clifton MD
--- NOTE | 2019-06-03 15:47 | Diag Imaging Result Doc PS360 ---
EXAM: KUB ABDOMEN HISTORY: evaluate for constipation or obstruction TECHNIQUE: Single view COMPARISON: None. FINDINGS: No bowel obstruction. No organomegaly. Moderate degenerative changes to the lumbar spine. Moderate atherosclerosis. No foreign body. IMPRESSION: No bowel obstruction. Electronically signed by Dheeraj Perry 06/03/2019 3:45 PM
[2019-06-04] MEDS: CARAFATE LIQUID PO SCH ×4 (01:15→22:06)
--- NOTE | 2019-06-04 01:48 | GASTROENTEROLOGY PROGRESS NOTE ---
DATE: 06/03/2019 SUBJECTIVE: Patient resting in bed. He is complaining of nausea. He has not moved his bowels in the last 5 days. He was able to eat 25% of his meal. He denies any fevers, rigors, or chills. OBJECTIVE: Vital signs: Temperature of 98.8 degrees, pulse of 91, respiratory rate 15, blood pressure 120/57, saturating 98% room air. Body weight of 177 pounds. BMI 23.4 kg/m2. General: He is lying in bed, in no acute distress. HEENT: Pale conjunctivae. No icterus. Pupils equal, reactive to light. Neck: Supple. Abdomen: Soft, nontender, nondistended. No guarding or rebound. Extremities: No cyanosis, clubbing. Neurologic: He is alert, awake, oriented. LABORATORY DATA: Hemoglobin and hematocrit 11.3 and 34.4, white count of 7.04, platelet count of 216,000. Sodium 130, potassium 3.9, chloride 95, bicarb of 14, anion gap 24, BUN of 8, creatinine 1. Glucose of 360, calcium 7 9, phosphorus 2.7. Magnesium 1.4 yesterday. His liver enzymes were normal on admission, his albumin was 2.9 on 05/30/2019. Blood culture negative at 48 hours. Abdominal x-ray was done today which showed no bowel obstruction, moderate atherosclerosis. No foreign body. ASSESSMENT AND PLAN: 1. Nausea and vomiting, which is improving. 2. Abdominal pain. 3. Diabetes mellitus. 4. Diabetic gastroparesis, possible. 5. Chronic obstructive pulmonary disease. 6. Starvation ketosis. 7. Substance abuse. 8. Anemia. 9. Constipation. Last bowel was 5 days ago. RECOMMENDATIONS: 1. We will start the patient on soapsuds enema twice daily for today and evaluate the response. He will continue on MiraLAX twice daily. The patient is on Reglan 20 mg IV q.6 hours, hold for any side effects like tardive dyskinesia. He is on IV Zofran for nausea. He is on PPIs b.i.d. for GI prophylaxis and gastritis. His gastric biopsy currently pending. 2. The patient has hypoalbuminemia and malnutrition, so he is on Clinimix as well. He is trying clear liquid diet today. 3. Diabetes control is with the Lantus and sliding scale. 4. The patient has history of smoking marijuana. We may have to hold that for now in the setting of intractable nausea and vomiting. If the patient continues to have worsening abdominal pain, we may have to do a CT scan of the abdomen and pelvis. He will continue on TPN for now. We will follow along. The above plan discussed with the patient and all questions answered. Please call with any further questions. cc: MD Aleksander Gonzalez MD MTDD
[2019-06-04] MEDS: ULTRAM PO PRN (04:02)
[2019-06-04] MEDS: REGLAN IV SCH ×4 (04:02→22:06)
[2019-06-04] MEDS: DUONEB (A & A) INH SCH ×6 (06:41→22:40)
[2019-06-04] MEDS: HUMALOG SUBQ SCH ×4 (06:45→22:06)
[2019-06-04 06:47] LABS: AGAP 9; BUN 11 mg/dL (8-22); CHLORIDE 96 mmol/L (98-107); COSMO 270; CREATININE 0.9 mg/dL (0.7-1.2); ESTIMATED GFR > 60; GLUCOSE 166 mg/dL (70-104); PHOSPHORUS 2.7 mg/dL (2.7-4.5); POTASSIUM 2.9 mmol/L (3.5-5.1); SODIUM 133 mmol/L (136-145); TCO2 28 mmol/L (25-35)
[2019-06-04] MEDS ORDERED: POTASSIUM CHLORIDE 60 MEQ in NS 500 ML IV ONE (08:46)
[2019-06-04] MEDS: PROTONIX IV SCH ×2 (10:15→22:05)
[2019-06-04] MEDS: SODIUM CHLORIDE 0.9% INJ SCH ×2 (10:15→22:05)
[2019-06-04] MEDS: LEVAQUIN 750 MG in NS 150 ML IV SCH (10:16)
[2019-06-04] MEDS: LIPOSYN 20% 250 ML IV SCH (10:16)
[2019-06-04] MEDS: LANTUS INSULIN SUBQ SCH (10:17)
[2019-06-04] MEDS: CLINIMIX E 4.25%-5% SOLUTION 1,000 ML IV SCH (10:17)
[2019-06-04] MEDS: MIRALAX PO SCH ×2 (11:18→22:05)
--- NOTE | 2019-06-04 12:01 | PROGRESS NOTE ---
DATE: 06/04/2019 SUBJECTIVE: The patient definitely is feeling much better. Less nauseated. He was able to eat almost all his clear liquids, and he wants to have his diet advanced. OBJECTIVE: Vital Signs: Temperature 98.3 degrees, heart rate 93, respiratory rate 19, blood pressure 150/75, O2 saturation 97% on room air. General: This is a 53-year-old, male, lying in bed in no acute distress. Cardiovascular: S1 and S2 heard. No murmurs, gallops, or rubs. Regular rate and rhythm. Respiratory: Clear bilaterally to auscultation. No work of breathing. Not using accessory muscles. Minimal coarse breath sounds noted in both pulmonary bases. Abdomen: Soft, nontender to palpation. Bowel sounds present. No organomegaly. Extremities: No clubbing, cyanosis, or edema. Peripheral pulses present in both legs. Neurological: The patient is alert and oriented x3. Moves all 4 extremities. LABORATORY DATA: Reviewed. ASSESSMENT AND PLAN: 1. Starvation ketosis. The patient is not vomiting anymore. Her BMP looks much better. Will continue to monitor. 2. Diabetic gastroparesis. Will continue with Reglan 10 mg every 6 hours, and Zofran. Definitely, the patient is looking much better, so will continue with Reglan, and will advance his diet to gastrointestinal soft diet and will go from there. Because he was not able to eat properly, he is on Clinimix and lipids. 3. Chronic obstructive pulmonary disease. Currently with breathing treatments. The patient is definitely doing much better. 4. Acute kidney injury, resolved. 5. Hypertension. Blood pressure is under control. Will continue with the same management. 6. Disposition. At this point, will continue to monitor this patient closely. He may be discharged between tomorrow and the day after. Gastroenterology is following this patient. Will follow recommendations. cc: Nelson Clifton MD MTDD
--- NOTE | 2019-06-04 20:13 | GASTROENTEROLOGY PROGRESS NOTE ---
DATE: 06/04/2019 SUBJECTIVE: Patient resting in bed. He is beginning to eat better. He had one bowel movement which was documented from earlier today. He has been receiving his MiraLAX and soapsuds enema. I encouraged to take MiraLAX once daily. OBJECTIVE: Vital signs: Temperature 98.1 degrees, pulse of 84, respiratory rate of 19, blood pressure 139/69, saturating 97% on room air. Body weight of 175 pounds. BMI 23.1 kg/m2. General Appearance: Moderately nourished, lying in bed, in no acute distress. HEENT: Pale conjunctivae. No icterus. Pupils equal, reactive to light. Neck: Supple. Abdomen: Discomfort in the epigastrium. No rebound or guarding. Extremities: No cyanosis or clubbing. Neurologic: Alert, awake, oriented x3. LABS: His sodium is 130, potassium 2.9, chloride 96, bicarb 20, anion gap 9, BUN of 11, creatinine 0.9, glucose 166, calcium 8, magnesium 2, phosphorus 2.7. Blood cultures negative for 48 hours from 05/30/2019. Abdominal x-ray done yesterday showed no bowel obstruction. IMPRESSION AND PLAN: 1. Starvation ketosis 2. Diabetic gastroparesis. 3. Chronic obstructive pulmonary disease. 4. Acute kidney injury, resolved. 5. Hypertension being managed by the primary team. 6. Nausea and vomiting which is improved. 7. Abdominal pain is improved. 8. Diabetes mellitus. Nexus substance abuse. The patient uses marijuana at home. 9. Anemia. 10. Constipation is improving. RECOMMENDATIONS: 1. Will continue the patient on MiraLAX once or twice daily. He will continue Reglan 10 mg IV q.6 hours and hold for side effects like tardive dyskinesia. He is also on IV Zofran for nausea. He is on PPIs for GI prophylaxis. The gastric biopsy results are currently pending. 2. Malnutrition; he is on Clinimix. He is starting to eat. Hopefully we can discontinue Clinimix once he is able to meet his daily calorie needs. 3. His diabetes controlled with Lantus and sliding scale, per the primary care team. 4. Counseled him to quit using marijuana for now as it can contribute to worsening nausea and vomiting in some patients. His abdominal pain is improved. If the patient starts having any worsening abdominal pain, future he may need imaging of CT scan. 5. The patient will follow up in the clinic in 3 weeks after discharge for followup on the stomach biopsy and possible colonoscopy. We will sign off at this time. The above plans were explained to the patient and all questions answered. Please call with any further questions. cc: Aleksander Dc MD
[2019-06-05] MEDS: CLINIMIX E 4.25%-5% SOLUTION 1,000 ML IV SCH (01:03)
[2019-06-05] MEDS: CARAFATE LIQUID PO SCH ×2 (01:04→09:21)
[2019-06-05] MEDS: ULTRAM PO PRN (01:08)
[2019-06-05] MEDS: REGLAN IV SCH ×2 (03:29→09:22)
[2019-06-05] MEDS: HUMALOG SUBQ SCH (06:08)
[2019-06-05] MEDS: DUONEB (A & A) INH SCH ×2 (06:11→07:55)
[2019-06-05 06:24] LABS: AGAP 12; BUN 11 mg/dL (8-22); CALCIUM 8.1 mg/dL (8.8-10.2); CHLORIDE 100 mmol/L (98-107); COSMO 279; CREATININE 0.9 mg/dL (0.7-1.2); ESTIMATED GFR > 60; GLUCOSE 137 mg/dL (70-104); PHOSPHORUS 3.2 mg/dL (2.7-4.5); POTASSIUM 3.7 mmol/L (3.5-5.1); SODIUM 139 mmol/L (136-145); TCO2 27 mmol/L (25-35)
[2019-06-05 08:40] VITALS: BP 143/79
[2019-06-05] MEDS: MIRALAX PO SCH (09:20)
[2019-06-05] MEDS: PROTONIX IV SCH (09:22)
[2019-06-05] MEDS: LANTUS INSULIN SUBQ SCH (09:24)
[2019-06-05] MEDS: LEVAQUIN 750 MG in NS 150 ML IV SCH (09:29)
--- NOTE | 2019-06-06 09:21 | DISCHARGE SUMMARY ---
ADMISSION DATE: 05/30/2019 DISCHARGE DATE: 06/05/2019 PRIMARY CARE PHYSICIAN: Dr. Abner Hawthorne. CONSULTATIONS: GI. ADMISSION DIAGNOSES: 1. Metabolic acidosis, multifactorial. 2. Intractable nausea and vomiting. 3. History of chronic obstructive pulmonary disease. 4. Acute kidney injury overlying chronic kidney disease. 5. Hypertension. DISCHARGE DIAGNOSES: 1. Starvation ketosis. 2. Diabetic gastroparesis. 3. Chronic obstructive pulmonary disease. 4. Acute kidney injury, resolved, overlying chronic kidney disease. 5. Hypertension. SUMMARY OF FINDINGS: This is a 53-year-old male who presented with complaints of intractable vomiting. He had been discharged from the hospital the previous Wednesday and felt good once he returned home, but the next day he attempted to eat, started vomiting and had been persistent throughout. Denied any black or bloody vomitus or stools. He was admitted, placed on the DKA protocol, but was found to be a starvation ketosis. IV hydration. We consulted GI. On 06/01/2019, he had an EGD with biopsy that showed reflux esophagitis, gastritis, was placed on anti-reflux diet, started on a proton pump inhibitor, MiraLAX 17 grams daily and is to return in 4 weeks for biopsy followup at time of discharge. He also had a gastric emptying nuclear medicine study on 06/02/2019 that showed delayed gastric emptying. He had an abdominal x-ray on 06/03/2019 that showed no bowel obstruction. He was started on Reglan 10 mg every 6 hours. He has improved. His diet has been advanced and currently is on a GI soft diet, and it is now felt that he can safely be discharged home. DISCHARGE MEDICATIONS: Tylenol 650 mg p.o. every 6 hours p.r.n., DuoNeb every 4 hours p.r.n., diclofenac 75 mg p.o. t.i.d., Lantus 35 units subcutaneously every night at bedtime, Humulin-R 15 units subcutaneously t.i.d., Levaquin 500 mg p.o. daily, lisinopril 5 mg p.o. daily, metoclopramide 5 mg p.o. t.i.d., omeprazole 40 mg p.o. daily, Lyrica 75 mg p.o. b.i.d., and Carafate liquid 1 gram p.o. every 6 hours. FOLLOWUP: He will follow up with GI in 4 weeks for his biopsy results. Follow up with his primary care physician in the next 1 to 2 weeks and call their office for an appointment. All discharge instructions have been reviewed with the patient, and he verbalized understanding. TIME SPENT: A 35 minute discharge. Dictated by ANJANA Ojeda for Nelson Clifton MD Addendum: Patient seen and examined by myself. Agree with ANJANA note. It reflects my assessment and plan. Patient is being discharged in stable condition. Will be see by PCP in one to two weeks. cc: ANJANA Ojeda MD Gregory S. Cheatham, MD MTDD
== END 2019-06-05 10:07 | disposition home or self-care (01) | DRG 74 ==
LOC: P.ED 13:38 → SUATTDRO 18:25 → ICU 18:25 → 1N 06-02 02:12
PROVIDERS: ATTEND Internal Medicine